=== PATIENT | male | born 1945 | race Caucasian/White ===

== ENCOUNTER 2019-08-01 12:52 | Emergency (ER) | payer MEDICARE, OTHER, SELFPAY ==
[2019-08-01 12:58] VITALS: BP 154/74; PULSE 60; RESP 19; TEMP 36.5; O2SAT 99
[2019-08-01 13:01] VITALS: BP 175/81; PULSE 58; RESP 18; O2SAT 99
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
[2019-08-01 14:00] VITALS: BP 160/76; PULSE 59; RESP 18; O2SAT 100
[2019-08-01 15:40] VITALS: PULSE 70
--- NOTE | 2019-08-01 15:41 | PM.CN ---
History of Present Illness Consult details Date Patient Seen: 08/01/19 Time Patient Seen: 15:41 Chief complaint: FELL AND HURT RT KNEE Reason for consult: Right quadriceps rupture Requesting provider: Erick Maciel Narrative: 74-year-old male with right quadriceps rupture. He was working outside and was turning and tripped over a pipe. He felt a pop as he went down. He was unable to extend his knee after that. He came into the emergency room to have this evaluated. He did not hit his head or lose consciousness. He did not have any prodromal shortness of breath or dizziness, he just tripped over the pipe. Does not hurt anywhere else. Meds Home Medications and Allergies Home Medications Medication Instructions Recorded Confirmed Type aspirin 81 mg PO HS #0 08/09/17 History atorvastatin [Lipitor] 20 mg PO HS #0 08/09/17 History Allergies Allergy/AdvReac Type Severity Reaction Status Date / Time No Known Drug Allergies Allergy Verified 08/01/19 12:59 Review of Systems Constitutional Constitutional: Denies chills and Denies fever(s) ENT Ears, Nose, Mouth, and Throat: No dizziness Cardiovascular Cardiovascular: Denies chest pain Respiratory Respiratory: Denies chest congestion, Denies cough and Denies wheezing Neurologic Neurologic: Denies dizziness Hematologic/Lymphatic Hematologic/Lymphatic: Denies easy bleeding Allergic/Immunologic Allergic/Immunologic: Denies wheezing Exam Vital Signs (past 8 hours): - 08/01/19 12:58 08/01/19 13:01 08/01/19 14:00 Temperature 97.7 F Pulse Rate 60 58 L 59 L Respiratory Rate 19 18 18 Blood Pressure [Right Arm] 154/74 H 175/81 H 160/76 H Pulse Oximetry 99 99 100 Oxygen Delivery Method Room Air Const Orientation: alert and oriented x3 Resp Auscultation: clear to auscultation bilaterally Cardio Rate: regular rate Rhythm: regular rhythm Extrem Other: Right leg unable to actively extend knee. Unable to maintain extended position of knee against gravity. Palpable divot just above the patella with quadriceps tightening. Intact integument. 1+ dorsalis pedis pulse. Intact sensation in the leg. Assessment & Plan Assessment & Plan narrative: Acute right quadriceps tendon rupture. I recommend primary surgical repair and discussed the technique with sutures and drill holes through the patella. Risks and benefits of surgery were discussed including but not limited to medical risk with heart attack, stroke, DVT, PE, , infection, bleeding, scarring, rerupture, stiffness, altered gait, need for further surgery. He understands. We will plan on surgery tomorrow morning after he is NPO tonight. Arrangements were made for him to present to the front office manager at 9:00 a.m. and planned surgery time of 10:00 a.m..
--- NOTE | 2019-08-01 15:42 | PC.NURSE ---
can not straiten leg
[2019-08-01 15:52] VITALS: BP 141/72; PULSE 89; RESP 17; O2SAT 99
[2019-08-01] MEDS: BACITRACIN OINT 0.9 GM PCKT 1 APPLIC TOP (15:53)
[2019-08-02 01:11] LABS: COVID19 Sendout Not Detected (Not Detect)
== END 2019-08-01 16:24 | disposition home or self-care (01) ==
PROVIDERS: Emergency Provider Student in an Organized Health Care Education/Training Program
DX: S76.111A Strain of right quadriceps muscle, fascia and tendon, initial encounter (principal); M25.561 Pain in right knee; W19.XXXA Unspecified fall, initial encounter
CPT/HCPCS: 73562; 87635; 99283

== ENCOUNTER 2019-08-02 08:49 | Day surgery (SDC) | payer MEDICARE, OTHER, SELFPAY ==
[2019-08-02] VITALS (9 sets, daily range): BP systolic 109–141; BP diastolic 67–85; PULSE 60–75; RESP 11–16; TEMP 36.1–36.5; O2SAT 95–99; BMI 29.9
--- NOTE | 2019-08-02 09:13 | PM.PREOP ---
Pre-operative Note Interval Note History & Physical reviewed/Exam performed by Physician: Yes Changes to H&P: No
[2019-08-02] MEDS: LACTATED RINGERS 1,000 ML 42 ML IV (09:30)
--- NOTE | 2019-08-02 09:58 | SUR.OPER ---
Addendum entered by Ev Thomas R.N. 08/02/19 11:10: Bump under operative hip. Original Note: Supine on padded OR bed, head on pillow, arms secured on padded arm boards at <90 degrees abduction, legs uncrossed, safety belt at thigh, tape over blanket over lower legs.
[2019-08-02] MEDS: CEFAZOLIN 2 GM/100 ML FROZ.PIGGY IV (10:15)
--- NOTE | 2019-08-02 10:17 | SUR.PREOP ---
Block start time [48] . Monitoring initiated and maintained throughout procedure. Oxygen and medications given per anesthesiologist instructions. Patient remained stable throughout procedure, no adverse reactions noted. Block end time [954]. Pt alert and talking to RN and anesthesiologist during procedure. pt taken into the OR after completion of the block in stable condition, vss.
[2019-08-02] MEDS: SODIUM CHLORIDE 0.9% 1,000 ML, GENTAMICIN 80 MG IRR (11:07)
--- NOTE | 2019-08-02 11:45 | PM.OP.1 ---
Operative Date/Time/Diagnoses Date of procedure: 08/02/19 Time of procedure: 11:45 Pre-op diagnosis: Right quadriceps rupture Post-op diagnosis: same Procedure & Clinicians Procedure: Primary repair of right quadriceps tendon rupture Same procedure as scheduled: Yes Indications: 74-year-old male with a right quadriceps tendon rupture. It was felt that he would benefit from operative repair. Risks and benefits of surgery were discussed and appropriate consents were obtained. Surgeon: Alejandro Moran Click Yes if Unassisted: Yes Anesthesia Type: General Operative Notes Findings: None Closure Type: primary Specimen(s): none sent Estimated Blood Loss (mL): 20 Procedure in detail: Patient brought to the operating room and a femoral block as well as spinal were initiated with anesthesia. Time-out was performed. Preoperative antibiotics were given. Attention was turned towards the well-marked right leg. A well-padded tourniquet was placed high on the thigh. The leg was prepped and draped in the standard sterile fashion. We did not inflate the tourniquet. A 15 cm longitudinal incision was made in the midline. We sharply dissected down to the retinacular layer and split this and elevated up. The quadriceps had completely torn off as well as medial and lateral retinacular ruptures. The hematoma was evacuated and the wound was then copiously irrigated. We elevated up the knee, there was significant chondromalacia of the cartilage underneath the patella. The edges of the tendon were cleaned up. Deep mattress sutures were placed in the remnant of the tendon at the patellar insertion. A rongeur was used to debride the proximal pole of the patella. Krackow stitches were placed into the quadriceps tendon. Three drill holes were placed longitudinally through the patella with manual guidance. We then used suture passers and pulled down the stitches. The knee was flexed to 90? and the stitches were held with a hemostat and then tied tightly. There did not appear to be any gap. The mattress sutures were then tied down through the quadriceps tendon with free needles. We then repaired the retinaculum. The wound was again irrigated. The superficial and skin were closed. Sterile dressing was placed. He was then placed in a knee immobilizer. Complications: none Post-operative Condition: stable Disposition: PACU Plan for aftercare: Outpatient. Weight bear as tolerated with a knee immobilizer. May start gentle flexion to 30? three weeks after surgery and then advance to full at the 6 week point.
--- NOTE | 2019-08-02 12:37 | PM.PROC.1 ---
Procedures Date/Time Date of procedure: 08/02/19 Time of procedure: 10:00 Nerve Block Time out performed: Yes Local anesthetic used: lidocaine 2% (5mL, 15mL ropivacaine 0.5%) Location of anesthetic used: femoral nerve Amount of anesthesia used (mL): 20 Nerve blocks: femoral Procedure successful: Yes Patient tolerated procedure: well Complications: none Additional comments: Femoral Nerve block for post operative pain management. R/B discussed. Site marked. Consent verified/signed. Standard ASA monitors. NC O2. Chloroprep. Sterile technique. Femoral A/V/N identified at inguinal crease with US. Lidocaine skin wheal. 50mm x 21g Pajunk needle advanced with in-plane US guidance. Negative aspiration. LA injected lateral to femoral artery. Negative aspiration throughout. No pain, no paresthesia with injection. VSS. Tolerated well. To OR.
== END 2019-08-02 13:00 | disposition home or self-care (01) ==
PROVIDERS: PCP Internal Medicine; Referring Provider Orthopaedic Surgery; Visit Provider Orthopaedic Surgery
PROC: (CPT 27385; principal; 2019-08-02 10:00)
DX: S76.111A Strain of right quadriceps muscle, fascia and tendon, initial encounter (principal); W18.39XA Other fall on same level, initial encounter
CPT/HCPCS: 27385; 64450; J0690; J2704

== ENCOUNTER 2019-10-29 10:30 | Outpatient (RCR) | payer MEDICARE, OTHER, SELFPAY ==
--- NOTE | 2019-09-12 18:50 | PT.OIE ---
Current Diagnoses Difficulty in walking, not elsewhere classified (09/12/19) Weakness (09/12/19) Strain of right quadriceps muscle, fascia and tendon, subsequent encounter (09/12/19) Past Medical History (Last Updated 08/02/19 @ 07:49 by Lori Bynum RN) Actinic keratosis (Acute) Ankle fracture (Acute) HLD (hyperlipidemia) (Acute) HTN (hypertension) (Acute) Injury of right lower extremity (Acute 08/01/19) Rene syndrome (Acute) Past Surgical History (Last Updated 08/02/19 @ 07:49 by Lori Bynum RN) History of surgery (Acute) Hx of tonsillectomy (Acute) Visit Care Team Role Provider Type Nathanael Laguerre MD Primary Care Provider Physician Specialty: Internal Medicine Address: [address] [place] [address], [address] Email: [email or web address] Alejandro Moran MD Attending Provider Physician Referring Provider Specialty: Orthopedic Surgery Address: [address] [place] [address], [address] Email: [email or web address] Physical Therapy Initial Evaluation PT-OP-A Visit Information Start: 09/12/19 10:24 Freq: Status: Active Protocol: Document 09/12/19 16:52 [facility] (Rec: 09/12/19 18:50 [facility] [id number]) Out-Patient Physical Therapy Visit Information Visit Information Visit Type Initial Evaluation Visit Start Time 16:50 Visit Stop Time 17:35 Total Visit Minutes 45 Visit Number 1 Number of RN CARDIAC REHAB Visits 0 Precautions Precautions none after 09/12 per referal PT-OP-B Current Condition Start: 09/12/19 10:24 Freq: Status: Active Protocol: Document 09/12/19 16:52 [facility] (Rec: 09/12/19 18:50 [facility] [id number]) Current Condition History of Current Condition Onset Date 08/02/19 Current Complaints R quad History of Current Condition Pt was fueling up his car on and tripped when stepping over the gas hose and tripped. He tore his quad and had surgery the next day. He was in a knee immobilizer until yesterday. Pt saw last week who prescribed PT and told him to take off immobilizer yesterday. He was able to bend to about 90 at that appointment. Pt said he walked his dog today about 4 blocks without it prior to that he was walking a mile with his dog with immobilizer. 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 (Rec: 09/12/19 18:50 [facility] [id number]) Patient Questionnaires Lower Extremity Functional Scale LEFS Score 56 LEFS Impairment 20 to 39% Impaired (Score 48- 62) OP-PT Pain Assessment Location R knee Pain Location Details ant knee Intensity 3 Scale Used Numeric (1 - 10) Description With Movement Frequency Intermittent Pain Duration stops when stopping that motion Pain Aggravating Factors Bending Other Pain Alleviating Factors stop the painful movement PT-OP-D Balance Start: 09/12/19 10:24 Freq: Status: Active Protocol: Document 09/12/19 16:52 [facility] (Rec: 09/12/19 18:50 [facility] [id number]) Balance Tests Single Limb Standing Single Limb- Right 30 sec with inc pertubations, lat lean R Single Limb- Left 30 sec PT-OP-F Manual Assessment Start: 09/12/19 10:24 Freq: Status: Active Protocol: Document 09/12/19 16:52 [facility] (Rec: 09/12/19 18:50 [facility] [id number]) Manual Assessments Soft Tissue Assessment Soft Tissue Mobility Assessment scar tissue tightness present on ant knee scar Joint Mobility Assessment Joint Mobility Assessment dec patellar mobility R PT-OP-G Mobility & Gait Start: 09/12/19 10:24 Freq: Status: Active Protocol: Document 09/12/19 16:52 [facility] (Rec: 09/12/19 18:50 [facility] [id number]) OP Gait Assessment Comments Gait Comments Pt amb with dec knee flex of R leg and dec push off with lat lean to L with LLE WB in order to clear RLE PT-OP-J Posture/Palpation/Skin Start: 09/12/19 10:24 Freq: Status: Active Protocol: Document 09/12/19 16:52 [facility] (Rec: 09/12/19 18:50 [facility] [id number]) Posture Evaluation Annie Postural Classification System Lumbar Protective Mechanism Left AP 0 Lumbar Protective Mechanism Right AP 0 Lumbar Protective Mechanism Left PA 2 Lumbar Protective Mechanism Right PA 2 PT-OP-K Range of Motion Start: 09/12/19 10:24 Freq: Status: Active Protocol: Document 09/12/19 16:52 [facility] (Rec: 09/12/19 18:50 [facility] [id number]) Knee Goniometric Range of Motion Knee Left Flexion Active (degrees) 132 Extension Active (degrees) 0 Right Flexion Active (degrees) 83 Extension Active (degrees) 9 PT-OP-M Strength Start: 09/12/19 10:24 Freq: Status: Active Protocol: Document 09/12/19 16:52 [facility] (Rec: 09/12/19 18:50 [facility] [id number]) Hip Strength Hip Manual Muscle Testing Right Flexion (L2) 3+ Fair+ Extension (S1) 3+ Fair+ Abduction 3+ Fair+ Adduction 3+ Fair+ External Rotation 3+ Fair+ Internal Rotation 4- Good- Left Flexion (L2) 4+ Good+ Extension (S1) 4- Good- Abduction 4+ Good+ Adduction 4 Good External Rotation 4+ Good+ Internal Rotation 4+ Good+ Knee Strength Knee Manual Muscle Testing Right Flexion (S2) 3+ Fair+ Extension (L3) 3+ Fair+ Left Flexion (S2) 4+ Good+ Extension (L3) 5 Normal Ankle/Foot Strength Ankle and Foot Manual Muscle Testing Right Dorsiflexion (L4) 5 Normal Plantarflexion (S1) 5 Normal Left Dorsiflexion (L4) 5 Normal Plantarflexion (S1) 5 Normal PT-OP-Q Treatments Start: 09/12/19 10:24 Freq: Status: Active Protocol: Document 09/12/19 16:52 [facility] (Rec: 09/12/19 18:50 [facility] [id number]) Therapeutic Exercises Supine Exercises quad stretch Side right Reps/Minutes 30 sec heel slides Side right Reps/Minutes 5secx5 Sitting Exercises knee flex Sitting Exercise Name w/scoot fwd Side right Reps/Minutes 10 sec x3 Standing Exercises squat Standing Exercise Name sit<>stand Side bilateral Reps/Minutes 4 Comments min use of hands Manual Therapy Treatment Soft Tissue Mobilization scar Mobilization Type Rolling Intensity/Depth Moderate Body Position Supine Joint Mobilizations PF Direction sup, med, inf PT-OP-T Assessment and Plan Start: 09/12/19 10:24 Freq: Status: Active Protocol: Document 09/12/19 16:52 [facility] (Rec: 09/12/19 18:50 [facility] [id number]) Physical Therapy Assessment Rehab Potential Rehabilitation Potential Good Evaluation Complexity Number of Personal Factors/Comorbidities 3 or More Number of Body Systems Impaired 4 or More Clinical Presentation at Evaluation Stable Impairments Impairments Activity Tolerance,Balance, Functional Activities, Functional Mobility,Gait,Pain, Posture,ROM,Soft Tissue Mobility,Strength Goals walking Short Term Goal (STG) Pt will be able to walk 2 miles on even terrain without inc pain greater than 2/10. STG Duration 10/13/19 Detention Goal (LTG) Pt will be able to hike 2 miles on uneven and hilly terrain without inc pain. LTG Duration 11/12/19 ROM Short Term Goal (STG) Pt will have full ext to 0 deg in order to improve gait mechanics. STG Duration 10/01/19 Detention Goal (LTG) Pt will have flex to 130 deg and be able to get in/out of a kayak. LTG Duration 11/12/19 strength Short Term Goal (STG) Pt will be indep with HEP STG Duration 10/13/19 Co Director Goal (LTG) Pt will have 5/5 B LE strength and LPM to show improved stability and ability to return to typical activities. LTG Duration 11/12/19 stairs Impairment step to down and requires rails up and down stairs Short Term Goal (STG) Pt will be ascend stairs reciprocally without rails STG Duration 10/04/19 Detention Goal (LTG) pt will be able to descend stairs reciprocally without raisl LTG Duration 11/12/19 Assessment Summary Assessment Pt presents 6 weeks s/p R quad tear and repair after tripping on gas hose at the gas station. He is recovering well and was cleared to remove his immobilizer that had been locked to 30 deg flex yesterday. Per referral, starting tomorrow 09/12, pt has no restrictions. He is doing well with activties, but has imparied gait and limited mobility due to dec ROM and strength. He would benefit from skilled PT to address these concerns. Physical Therapy Plan Frequency and Duration Frequency of Treatment 1-2x/week Duration of Treatment 2 months Plan of Care Start Date 09/12/19 Plan of Care End Date 11/12/19 Therapeutic Interventions Therapeutic Interventions Aquatic Therapy,Balance Training,Gait Training,Home Exercise Program,Joint Mobilizations,Manual Therapy, Neuromuscular Re-education, Patient/Caregiver Education, Self-Care/Home Management,Soft Tissue Mobilization,Taping, Therapeutic Activities, Therapeutic Exercises Modalities Cold Pack/Ice Massage,Electric Stimulation,Hot Packs, Ultrasound Next Visit Focus/Plan Next Note Type Treatment Note Next Visit Plan work on patellar mobility, scar tissue mobility, tibfib & tib fem mobility, step ups, balance board
--- NOTE | 2019-09-12 18:50 | PT.OPPOC ---
Physical, Occupational & Speech Therapy At [facility] Current Diagnoses Difficulty in walking, not elsewhere classified (09/12/19) Weakness (09/12/19) Strain of right quadriceps muscle, fascia and tendon, subsequent encounter (09/12/19) Visit Care Team Role Provider Type Nathanael Laguerre MD Primary Care Provider Physician Specialty: Internal Medicine Address: [address] [place] [address], [address] Email: [email or web address] Alejandro Moran MD Attending Provider Physician Referring Provider Specialty: Orthopedic Surgery Address: [address] [place] [address], [address] Email: [email or web address] Plan Of Care PT-OP-T Assessment and Plan Start: 09/12/19 10:24 Freq: Status: Active Protocol: Document 09/12/19 16:52 [facility] (Rec: 09/12/19 18:50 [facility] [id number]) Physical Therapy Assessment Rehab Potential Rehabilitation Potential Good Evaluation Complexity Number of Personal Factors/Comorbidities 3 or More Number of Body Systems Impaired 4 or More Clinical Presentation at Evaluation Stable Impairments Impairments Activity Tolerance,Balance, Functional Activities, Functional Mobility,Gait,Pain, Posture,ROM,Soft Tissue Mobility,Strength Goals walking Short Term Goal (STG) Pt will be able to walk 2 miles on even terrain without inc pain greater than 2/10. STG Duration 10/13/19 Ip Litigation Paralegal Goal (LTG) Pt will be able to hike 2 miles on uneven and hilly terrain without inc pain. LTG Duration 11/12/19 ROM Short Term Goal (STG) Pt will have full ext to 0 deg in order to improve gait mechanics. STG Duration 10/01/19 Ip Litigation Paralegal Goal (LTG) Pt will have flex to 130 deg and be able to get in/out of a kayak. LTG Duration 11/12/19 strength Short Term Goal (STG) Pt will be indep with HEP STG Duration 10/13/19 Ip Litigation Paralegal Goal (LTG) Pt will have 5/5 B LE strength and LPM to show improved stability and ability to return to typical activities. LTG Duration 11/12/19 stairs Impairment step to down and requires rails up and down stairs Short Term Goal (STG) Pt will be ascend stairs reciprocally without rails STG Duration 10/04/19 Senior Care Goal (LTG) pt will be able to descend stairs reciprocally without raisl LTG Duration 11/12/19 Assessment Summary Assessment Pt presents 6 weeks s/p R quad tear and repair after tripping on gas hose at the gas station. He is recovering well and was cleared to remove his immobilizer that had been locked to 30 deg flex yesterday. Per referral, starting tomorrow 09/12, pt has no restrictions. He is doing well with activties, but has imparied gait and limited mobility due to dec ROM and strength. He would benefit from skilled PT to address these concerns. Physical Therapy Plan Frequency and Duration Frequency of Treatment 1-2x/week Duration of Treatment 2 months Plan of Care Start Date 09/12/19 Plan of Care End Date 11/12/19 Therapeutic Interventions Therapeutic Interventions Aquatic Therapy,Balance Training,Gait Training,Home Exercise Program,Joint Mobilizations,Manual Therapy, Neuromuscular Re-education, Patient/Caregiver Education, Self-Care/Home Management,Soft Tissue Mobilization,Taping, Therapeutic Activities, Therapeutic Exercises Modalities Cold Pack/Ice Massage,Electric Stimulation,Hot Packs, Ultrasound Next Visit Focus/Plan Next Note Type Treatment Note Next Visit Plan work on patellar mobility, scar tissue mobility, tibfib & tib fem mobility, step ups, balance board Plan of Care Dates Plan of Care Start Date 09/12/19 Plan of Care End Date 11/12/19 Electronically Signed by: Vicki Black, PT 09/12/19 [id number] Please Sign and Return: I have reviewed this Plan of Care and certify that the skilled therapy services above are required to meet the patient?s needs. Physician Signature Date Printed Name and Credentials Clinical Instructor Signature Printed Name and Credentials
--- NOTE | 2019-09-17 11:27 | PT.OTN ---
Current Diagnoses Difficulty in walking, not elsewhere classified (09/17/19) Weakness (09/17/19) Strain of right quadriceps muscle, fascia and tendon, subsequent encounter (09/17/19) Physical Therapy Treatment Note PT-OP-A Visit Information Start: 09/12/19 10:24 Freq: Status: Active Protocol: Document 09/17/19 09:45 [facility] (Rec: 09/17/19 11:27 [facility] [id number]) Out-Patient Physical Therapy Visit Information Visit Information Visit Type Treatment Note Visit Note 05/28 Visit Start Time 09:45 Visit Stop Time 10:28 Total Visit Minutes 43 Visit Number 2 Number of NARCOTICS AND VICE DETECTIVE Visits 0 PT-OP-B Current Condition Start: 09/12/19 10:24 Freq: Status: Active Protocol: Document 09/12/19 16:52 [facility] (Rec: 09/12/19 18:50 [facility] [id number]) Current Condition History of Current Condition Onset Date 08/02/19 Current Complaints R quad History of Current Condition Pt was fueling up his car on and tripped when stepping over the gas hose and tripped. He tore his quad and had surgery the next day. He was in a knee immobilizer until yesterday. Pt saw MD last week who prescribed PT and told him to take off immobilizer yesterday. He was able to bend to about 90 at that appointment. Pt said he walked his dog today about 4 blocks without it prior to that he was walking a mile with his dog with immobilizer. 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 swimmer, likes to [employer], rides a motorcycle, and goes for walks daily with dog (1.5 miles) Treatment Goals Patient/Caregiver Goals Improve his ROM to close to other leg, be able to hike steep inclines, be able to go down steps, be able to walk on a boat and pull up sails Personal Factors Other Personal Factors That May Effect hx of LBP, R ankle fracture Therapy/Recovery PT-OP-C Subjective Start: 09/12/19 10:24 Freq: Status: Active Protocol: Document 09/17/19 09:45 [facility] (Rec: 09/17/19 11:27 [facility] [id number]) OP-PT Subjective Patient Comments Patient Comments compliance with HEP PT-OP-D Balance Start: 09/12/19 10:24 Freq: Status: Active Protocol: Document 09/12/19 16:52 [facility] (Rec: 09/12/19 18:50 [facility] [id number]) Balance Tests Single Limb Standing Single Limb- Right 30 sec with inc pertubations, lat lean R Single Limb- Left 30 sec PT-OP-F Manual Assessment Start: 09/12/19 10:24 Freq: Status: Active Protocol: Document 09/12/19 16:52 [facility] (Rec: 09/12/19 18:50 [facility] [id number]) Manual Assessments Soft Tissue Assessment Soft Tissue Mobility Assessment scar tissue tightness present on ant knee scar Joint Mobility Assessment Joint Mobility Assessment dec patellar mobility R PT-OP-G Mobility & Gait Start: 09/12/19 10:24 Freq: Status: Active Protocol: Document 09/12/19 16:52 [facility] (Rec: 09/12/19 18:50 [facility] [id number]) OP Gait Assessment Comments Gait Comments Pt amb with dec knee flex of R leg and dec push off with lat lean to L with LLE WB in order to clear RLE PT-OP-J Posture/Palpation/Skin Start: 09/12/19 10:24 Freq: Status: Active Protocol: Document 09/12/19 16:52 [facility] (Rec: 09/12/19 18:50 [facility] [id number]) Posture Evaluation [facility] Postural Classification System Lumbar Protective Mechanism Left AP 0 Lumbar Protective Mechanism Right AP 0 Lumbar Protective Mechanism Left PA 2 Lumbar Protective Mechanism Right PA 2 PT-OP-K Range of Motion Start: 09/12/19 10:24 Freq: Status: Active Protocol: Document 09/12/19 16:52 [facility] (Rec: 09/12/19 18:50 [facility] [id number]) Knee Goniometric Range of Motion Knee Left Flexion Active (degrees) 132 Extension Active (degrees) 0 Right Flexion Active (degrees) 83 Extension Active (degrees) 9 PT-OP-M Strength Start: 09/12/19 10:24 Freq: Status: Active Protocol: Document 09/12/19 16:52 [facility] (Rec: 09/12/19 18:50 [facility] [id number]) Hip Strength Hip Manual Muscle Testing Right Flexion (L2) 3+ Fair+ Extension (S1) 3+ Fair+ Abduction 3+ Fair+ Adduction 3+ Fair+ External Rotation 3+ Fair+ Internal Rotation 4- Good- Left Flexion (L2) 4+ Good+ Extension (S1) 4- Good- Abduction 4+ Good+ Adduction 4 Good External Rotation 4+ Good+ Internal Rotation 4+ Good+ Knee Strength Knee Manual Muscle Testing Right Flexion (S2) 3+ Fair+ Extension (L3) 3+ Fair+ Left Flexion (S2) 4+ Good+ Extension (L3) 5 Normal Ankle/Foot Strength Ankle and Foot Manual Muscle Testing Right Dorsiflexion (L4) 5 Normal Plantarflexion (S1) 5 Normal Left Dorsiflexion (L4) 5 Normal Plantarflexion (S1) 5 Normal PT-OP-Q Treatments Start: 09/12/19 10:24 Freq: Status: Active Protocol: Document 09/17/19 09:45 [facility] (Rec: 09/17/19 11:27 [facility] [id number]) Cardio Equipment Recumbent Stepper (Sci-Fit) Duration (Minutes) 6 Resistance 1 Seat Position 11-10 Other focus on ROM Gym Equipment Shuttle Balance red clips Details fwd & side: WBOS & NBOS & tips Therapeutic Exercises Supine Exercises quad set Side right Reps/Minutes 5 sec x5 HS stretch Side right Reps/Minutes 30 sec x2 Prone Exercises TKE Side bilateral Reps/Minutes 5secx5 quad stretch Prone Exercise Name w/ belt Side right Reps/Minutes 30 secx2 Manual Therapy Treatment Soft Tissue Mobilization post leg Body Location HS & calf Mobilization Type Rolling Intensity/Depth Moderate Body Position Supine scar Mobilization Type Rolling Intensity/Depth Moderate Body Position Supine Comments rolling & plunger Joint Mobilizations PF Direction sup, med, inf PT-OP-T Assessment and Plan Start: 09/12/19 10:24 Freq: Status: Active Protocol: Document 09/17/19 09:45 [facility] (Rec: 09/17/19 11:27 [facility] [id number]) Physical Therapy Assessment Goals walking Short Term Goal (STG) Pt will be able to walk 2 miles on even terrain without inc pain greater than 2/10. STG Duration 10/13/19 [employer] Performer Goal (LTG) Pt will be able to hike 2 miles on uneven and hilly terrain without inc pain. LTG Duration 11/12/19 ROM Short Term Goal (STG) Pt will have full ext to 0 deg in order to improve gait mechanics. STG Duration 10/01/19 Halfway Goal (LTG) Pt will have flex to 130 deg and be able to get in/out of a kayak. LTG Duration 11/12/19 strength Short Term Goal (STG) Pt will be indep with HEP STG Duration 10/13/19 Marionette Performer Goal (LTG) Pt will have 5/5 B LE strength and LPM to show improved stability and ability to return to typical activities. LTG Duration 11/12/19 stairs Impairment step to down and requires rails up and down stairs Short Term Goal (STG) Pt will be ascend stairs reciprocally without rails STG Duration 10/04/19 Halfway Goal (LTG) pt will be able to descend stairs reciprocally without raisl LTG Duration 11/12/19 Assessment Summary Assessment Pt did well with all exercises without c/o inc pain. ROM to 104 deg of flex today. He did well with balance exercises with challenge on balance board. Impoving superior mobility of scar. Physical Therapy Plan Frequency and Duration Frequency of Treatment 1-2x/week Duration of Treatment 2 months Plan of Care Start Date 09/12/19 Plan of Care End Date 11/12/19 Next Visit Focus/Plan Next Note Type Treatment Note Next Visit Plan work on patellar mobility, scar tissue mobility, tibfib & tib fem mobility, quad strength, balance board
--- NOTE | 2019-09-19 12:58 | PT.OTN ---
Current Diagnoses Difficulty in walking, not elsewhere classified (09/19/19) Weakness (09/19/19) Strain of right quadriceps muscle, fascia and tendon, subsequent encounter (09/19/19) Physical Therapy Treatment Note PT-OP-A Visit Information Start: 09/12/19 10:24 Freq: Status: Active Protocol: Document 09/19/19 10:39 [facility] (Rec: 09/19/19 11:20 [facility] [id number]) Out-Patient Physical Therapy Visit Information Visit Information Visit Type Treatment Note Visit Note 05/28 Visit Start Time 10:34 Visit Stop Time 11:17 Total Visit Minutes 43 Visit Number 3 Number of CULINARY MANAGER Visits 0 PT-OP-B Current Condition Start: 09/12/19 10:24 Freq: Status: Active Protocol: Document 09/12/19 16:52 [facility] (Rec: 09/12/19 18:50 [facility] [id number]) Current Condition History of Current Condition Onset Date 08/02/19 Current Complaints R quad History of Current Condition Pt was fueling up his car on and tripped when stepping over the gas hose and tripped. He tore his quad and had surgery the next day. He was in a knee immobilizer until yesterday. Pt saw MD last week who prescribed PT and told him to take off immobilizer yesterday. He was able to bend to about 90 at that appointment. Pt said he walked his dog today about 4 blocks without it prior to that he was walking a mile with his dog with immobilizer. 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 swimmer, likes to [employer], rides a motorcycle, and goes for walks daily with dog (1.5 miles) Treatment Goals Patient/Caregiver Goals Improve his ROM to close to other leg, be able to hike steep inclines, be able to go down steps, be able to walk on a boat and pull up sails Personal Factors Other Personal Factors That May Effect hx of LBP, R ankle fracture Therapy/Recovery PT-OP-C Subjective Start: 09/12/19 10:24 Freq: Status: Active Protocol: Document 09/19/19 10:39 [facility] (Rec: 09/19/19 11:20 [facility] [id number]) OP-PT Subjective Patient Comments Patient Comments Pt feels like knee loosened up yesterday. PT-OP-D Balance Start: 09/12/19 10:24 Freq: Status: Active Protocol: Document 09/12/19 16:52 [facility] (Rec: 09/12/19 18:50 [facility] [id number]) Balance Tests Single Limb Standing Single Limb- Right 30 sec with inc pertubations, lat lean R Single Limb- Left 30 sec PT-OP-F Manual Assessment Start: 09/12/19 10:24 Freq: Status: Active Protocol: Document 09/12/19 16:52 [facility] (Rec: 09/12/19 18:50 [facility] [id number]) Manual Assessments Soft Tissue Assessment Soft Tissue Mobility Assessment scar tissue tightness present on ant knee scar Joint Mobility Assessment Joint Mobility Assessment dec patellar mobility R PT-OP-G Mobility & Gait Start: 09/12/19 10:24 Freq: Status: Active Protocol: Document 09/12/19 16:52 [facility] (Rec: 09/12/19 18:50 [facility] [id number]) OP Gait Assessment Comments Gait Comments Pt amb with dec knee flex of R leg and dec push off with lat lean to L with LLE WB in order to clear RLE PT-OP-J Posture/Palpation/Skin Start: 09/12/19 10:24 Freq: Status: Active Protocol: Document 09/12/19 16:52 [facility] (Rec: 09/12/19 18:50 [facility] [id number]) Posture Evaluation [facility] Postural Classification System Lumbar Protective Mechanism Left AP 0 Lumbar Protective Mechanism Right AP 0 Lumbar Protective Mechanism Left PA 2 Lumbar Protective Mechanism Right PA 2 PT-OP-K Range of Motion Start: 09/12/19 10:24 Freq: Status: Active Protocol: Document 09/12/19 16:52 [facility] (Rec: 09/12/19 18:50 [facility] [id number]) Knee Goniometric Range of Motion Knee Left Flexion Active (degrees) 132 Extension Active (degrees) 0 Right Flexion Active (degrees) 83 Extension Active (degrees) 9 PT-OP-M Strength Start: 09/12/19 10:24 Freq: Status: Active Protocol: Document 09/12/19 16:52 [facility] (Rec: 09/12/19 18:50 [facility] [id number]) Hip Strength Hip Manual Muscle Testing Right Flexion (L2) 3+ Fair+ Extension (S1) 3+ Fair+ Abduction 3+ Fair+ Adduction 3+ Fair+ External Rotation 3+ Fair+ Internal Rotation 4- Good- Left Flexion (L2) 4+ Good+ Extension (S1) 4- Good- Abduction 4+ Good+ Adduction 4 Good External Rotation 4+ Good+ Internal Rotation 4+ Good+ Knee Strength Knee Manual Muscle Testing Right Flexion (S2) 3+ Fair+ Extension (L3) 3+ Fair+ Left Flexion (S2) 4+ Good+ Extension (L3) 5 Normal Ankle/Foot Strength Ankle and Foot Manual Muscle Testing Right Dorsiflexion (L4) 5 Normal Plantarflexion (S1) 5 Normal Left Dorsiflexion (L4) 5 Normal Plantarflexion (S1) 5 Normal PT-OP-Q Treatments Start: 09/12/19 10:24 Freq: Status: Active Protocol: Document 09/19/19 10:39 [facility] (Rec: 09/19/19 11:20 [facility] [id number]) Cardio Equipment Recumbent Stepper (Sci-Fit) Duration (Minutes) 6 Resistance 4 Seat Position 10-8 Other focus on ROM Gym Equipment Shuttle Balance red clips Details fwd & side: WBOS & NBOS & tips in WBOS, staggered stance B Therapeutic Exercises Standing Exercises step up Standing Exercise Name 6 in step reciprocally up and4 in down Side bilateral Reps/Minutes 2x stretch Standing Exercise Name [place] Manual Therapy Treatment Soft Tissue Mobilization quad Body Location VL Mobilization Type Rolling post leg Body Location HS & calf Mobilization Type Rolling Intensity/Depth Moderate Body Position Supine scar Mobilization Type Rolling Intensity/Depth Moderate Body Position Supine Comments rolling & plunger Joint Mobilizations PF Direction sup, med, inf Manual Techniques C/R Type HS stretch for ext PT-OP-T Assessment and Plan Start: 09/12/19 10:24 Freq: Status: Active Protocol: Document 09/19/19 10:39 [facility] (Rec: 09/19/19 11:20 [facility] [id number]) Physical Therapy Assessment Goals walking Short Term Goal (STG) Pt will be able to walk 2 miles on even terrain without inc pain greater than 2/10. STG Duration 10/13/19 Jail Goal (LTG) Pt will be able to hike 2 miles on uneven and hilly terrain without inc pain. LTG Duration 11/12/19 ROM Short Term Goal (STG) Pt will have full ext to 0 deg in order to improve gait mechanics. STG Duration 10/01/19 Kinesiotherapist Goal (LTG) Pt will have flex to 130 deg and be able to get in/out of a kayak. LTG Duration 11/12/19 strength Short Term Goal (STG) Pt will be indep with HEP STG Duration 10/13/19 Jail Goal (LTG) Pt will have 5/5 B LE strength and LPM to show improved stability and ability to return to typical activities. LTG Duration 11/12/19 stairs Impairment step to down and requires rails up and down stairs Short Term Goal (STG) Pt will be ascend stairs reciprocally without rails STG Duration 10/04/19 Jail Goal (LTG) pt will be able to descend stairs reciprocally without raisl LTG Duration 11/12/19 Assessment Summary Assessment Pt had 6-107 deg ROM then improved to lacking only 2 deg of ext after manaul tratment today. He is doing well with up stairs but difficulty with down stairs. Physical Therapy Plan Frequency and Duration Frequency of Treatment 1-2x/week Duration of Treatment 2 months Plan of Care Start Date 09/12/19 Plan of Care End Date 11/12/19 Next Visit Focus/Plan Next Note Type Treatment Note Next Visit Plan work on patellar mobility, scar tissue mobility, tibfib & tib fem mobility, quad strength, balance board
--- NOTE | 2019-09-24 12:20 | PT.OTN ---
Current Diagnoses Difficulty in walking, not elsewhere classified (09/24/19) Weakness (09/24/19) Strain of right quadriceps muscle, fascia and tendon, subsequent encounter (09/24/19) Physical Therapy Treatment Note PT-OP-A Visit Information Start: 09/12/19 10:24 Freq: Status: Active Protocol: Document 09/24/19 11:23 [facility] (Rec: 09/24/19 12:20 [facility] [id number]) Out-Patient Physical Therapy Visit Information Visit Information Visit Type Treatment Note Visit Start Time 11:18 Visit Stop Time 12:00 Total Visit Minutes 42 Visit Number 4 Number of SOCIAL GROUP WORKER Visits 0 PT-OP-B Current Condition Start: 09/12/19 10:24 Freq: Status: Active Protocol: Document 09/12/19 16:52 [facility] (Rec: 09/12/19 18:50 [facility] [id number]) Current Condition History of Current Condition Onset Date 08/02/19 Current Complaints R quad History of Current Condition Pt was fueling up his car on and tripped when stepping over the gas hose and tripped. He tore his quad and had surgery the next day. He was in a knee immobilizer until yesterday. Pt saw MD last week who prescribed PT and told him to take off immobilizer yesterday. He was able to bend to about 90 at that appointment. Pt said he walked his dog today about 4 blocks without it prior to that he was walking a mile with his dog with immobilizer. 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 swimmer, likes to [employer], rides a motorcycle, and goes for walks daily with dog (1.5 miles) Treatment Goals Patient/Caregiver Goals Improve his ROM to close to other leg, be able to hike steep inclines, be able to go down steps, be able to walk on a boat and pull up sails Personal Factors Other Personal Factors That May Effect hx of LBP, R ankle fracture Therapy/Recovery PT-OP-C Subjective Start: 09/12/19 10:24 Freq: Status: Active Protocol: Document 09/24/19 11:23 [facility] (Rec: 09/24/19 12:20 [facility] [id number]) OP-PT Subjective Patient Comments Patient Comments Pt reports he walked around [facility] this weekend and did some of the trails. ONly mild stiffness after. Patient Reported Progress Improving PT-OP-D Balance Start: 09/12/19 10:24 Freq: Status: Active Protocol: Document 09/12/19 16:52 [facility] (Rec: 09/12/19 18:50 [facility] [id number]) Balance Tests Single Limb Standing Single Limb- Right 30 sec with inc pertubations, lat lean R Single Limb- Left 30 sec PT-OP-F Manual Assessment Start: 09/12/19 10:24 Freq: Status: Active Protocol: Document 09/12/19 16:52 [facility] (Rec: 09/12/19 18:50 [facility] [id number]) Manual Assessments Soft Tissue Assessment Soft Tissue Mobility Assessment scar tissue tightness present on ant knee scar Joint Mobility Assessment Joint Mobility Assessment dec patellar mobility R PT-OP-G Mobility & Gait Start: 09/12/19 10:24 Freq: Status: Active Protocol: Document 09/12/19 16:52 [facility] (Rec: 09/12/19 18:50 [facility] [id number]) OP Gait Assessment Comments Gait Comments Pt amb with dec knee flex of R leg and dec push off with lat lean to L with LLE WB in order to clear RLE PT-OP-J Posture/Palpation/Skin Start: 09/12/19 10:24 Freq: Status: Active Protocol: Document 09/12/19 16:52 [facility] (Rec: 09/12/19 18:50 [facility] [id number]) Posture Evaluation [facility] Postural Classification System Lumbar Protective Mechanism Left AP 0 Lumbar Protective Mechanism Right AP 0 Lumbar Protective Mechanism Left PA 2 Lumbar Protective Mechanism Right PA 2 PT-OP-K Range of Motion Start: 09/12/19 10:24 Freq: Status: Active Protocol: Document 09/12/19 16:52 [facility] (Rec: 09/12/19 18:50 [facility] [id number]) Knee Goniometric Range of Motion Knee Left Flexion Active (degrees) 132 Extension Active (degrees) 0 Right Flexion Active (degrees) 83 Extension Active (degrees) 9 PT-OP-M Strength Start: 09/12/19 10:24 Freq: Status: Active Protocol: Document 09/12/19 16:52 [facility] (Rec: 09/12/19 18:50 [facility] [id number]) Hip Strength Hip Manual Muscle Testing Right Flexion (L2) 3+ Fair+ Extension (S1) 3+ Fair+ Abduction 3+ Fair+ Adduction 3+ Fair+ External Rotation 3+ Fair+ Internal Rotation 4- Good- Left Flexion (L2) 4+ Good+ Extension (S1) 4- Good- Abduction 4+ Good+ Adduction 4 Good External Rotation 4+ Good+ Internal Rotation 4+ Good+ Knee Strength Knee Manual Muscle Testing Right Flexion (S2) 3+ Fair+ Extension (L3) 3+ Fair+ Left Flexion (S2) 4+ Good+ Extension (L3) 5 Normal Ankle/Foot Strength Ankle and Foot Manual Muscle Testing Right Dorsiflexion (L4) 5 Normal Plantarflexion (S1) 5 Normal Left Dorsiflexion (L4) 5 Normal Plantarflexion (S1) 5 Normal PT-OP-Q Treatments Start: 09/12/19 10:24 Freq: Status: Active Protocol: Document 09/24/19 11:23 [facility] (Rec: 09/24/19 12:20 [facility] [id number]) Cardio Equipment Recumbent Stepper (Sci-Fit) Duration (Minutes) 7 Resistance 4 Seat Position 10-7 Other focus on ROM Gym Equipment Shuttle Balance red clips Details fwd & side: WBOS & NBOS & tips in WBOS, staggered stance B Reps/Duration also wt shifts fwd & side Manual Therapy Treatment Soft Tissue Mobilization scar Mobilization Type Rolling Intensity/Depth Moderate Body Position Supine Comments rolling & plunger & MFR w/ dycem w/ APs Neuro Re-Education Treatment Balance Activities bosu Comments 1. step ups onto bosu with 3 sec balance on top x10 B 2. squats x12 PT-OP-T Assessment and Plan Start: 09/12/19 10:24 Freq: Status: Active Protocol: Document 09/24/19 11:23 [facility] (Rec: 09/24/19 12:20 [facility] [id number]) Physical Therapy Assessment Goals walking Short Term Goal (STG) Pt will be able to walk 2 miles on even terrain without inc pain greater than 2/10. STG Duration achieved Javascript Engineer Goal (LTG) Pt will be able to hike 2 miles on uneven and hilly terrain without inc pain. LTG Duration 11/12/19 ROM Short Term Goal (STG) Pt will have full ext to 0 deg in order to improve gait mechanics. STG Duration 10/01/19 Javascript Engineer Goal (LTG) Pt will have flex to 130 deg and be able to get in/out of a kayak. LTG Duration 11/12/19 strength Short Term Goal (STG) Pt will be indep with HEP STG Duration 10/13/19 Javascript Engineer Goal (LTG) Pt will have 5/5 B LE strength and LPM to show improved stability and ability to return to typical activities. LTG Duration 11/12/19 stairs Impairment step to down and requires rails up and down stairs Short Term Goal (STG) Pt will be ascend stairs reciprocally without rails STG Duration 10/04/19 Javascript Engineer Goal (LTG) pt will be able to descend stairs reciprocally without raisl LTG Duration 11/12/19 Assessment Summary Assessment Pt had 7-111 deg and improved to 4-115 after manual treatment. He is improving with ability to balance and control his body on balance board and was able to do step ups to bosu without rail. Physical Therapy Plan Next Visit Focus/Plan Next Note Type Treatment Note Next Visit Plan work on patellar mobility, scar tissue mobility, tibfib & tib fem mobility, quad strength, work on push off for gait
--- NOTE | 2019-09-26 11:19 | PT.OTN ---
Current Diagnoses Difficulty in walking, not elsewhere classified (09/26/19) Weakness (09/26/19) Strain of right quadriceps muscle, fascia and tendon, subsequent encounter (09/26/19) Physical Therapy Treatment Note PT-OP-A Visit Information Start: 09/12/19 10:24 Freq: Status: Active Protocol: Document 09/26/19 10:38 [facility] (Rec: 09/26/19 11:19 [facility] [id number]) Out-Patient Physical Therapy Visit Information Visit Information Visit Type Treatment Note Visit Start Time 10:36 Visit Stop Time 11:14 Total Visit Minutes 38 Visit Number 5 Number of SIGNALS ANALYST Visits 0 PT-OP-B Current Condition Start: 09/12/19 10:24 Freq: Status: Active Protocol: Document 09/12/19 16:52 [facility] (Rec: 09/12/19 18:50 [facility] [id number]) Current Condition History of Current Condition Onset Date 08/02/19 Current Complaints R quad History of Current Condition Pt was fueling up his car on and tripped when stepping over the gas hose and tripped. He tore his quad and had surgery the next day. He was in a knee immobilizer until yesterday. Pt saw MD last week who prescribed PT and told him to take off immobilizer yesterday. He was able to bend to about 90 at that appointment. Pt said he walked his dog today about 4 blocks without it prior to that he was walking a mile with his dog with immobilizer. 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 (Rec: 09/26/19 11:19 [facility] [id number]) OP-PT Subjective Patient Comments Patient Comments Pt reports he has done some small walks since last time. COmpliance with HEP PT-OP-D Balance Start: 09/12/19 10:24 Freq: Status: Active Protocol: Document 09/12/19 16:52 [facility] (Rec: 09/12/19 18:50 [facility] [id number]) Balance Tests Single Limb Standing Single Limb- Right 30 sec with inc pertubations, lat lean R Single Limb- Left 30 sec PT-OP-F Manual Assessment Start: 09/12/19 10:24 Freq: Status: Active Protocol: Document 09/12/19 16:52 [facility] (Rec: 09/12/19 18:50 [facility] [id number]) Manual Assessments Soft Tissue Assessment Soft Tissue Mobility Assessment scar tissue tightness present on ant knee scar Joint Mobility Assessment Joint Mobility Assessment dec patellar mobility R PT-OP-G Mobility & Gait Start: 09/12/19 10:24 Freq: Status: Active Protocol: Document 09/12/19 16:52 [facility] (Rec: 09/12/19 18:50 [facility] [id number]) OP Gait Assessment Comments Gait Comments Pt amb with dec knee flex of R leg and dec push off with lat lean to L with LLE WB in order to clear RLE PT-OP-J Posture/Palpation/Skin Start: 09/12/19 10:24 Freq: Status: Active Protocol: Document 09/12/19 16:52 [facility] (Rec: 09/12/19 18:50 [facility] [id number]) Posture Evaluation [facility] Postural Classification System Lumbar Protective Mechanism Left AP 0 Lumbar Protective Mechanism Right AP 0 Lumbar Protective Mechanism Left PA 2 Lumbar Protective Mechanism Right PA 2 PT-OP-K Range of Motion Start: 09/12/19 10:24 Freq: Status: Active Protocol: Document 09/12/19 16:52 [facility] (Rec: 09/12/19 18:50 [facility] [id number]) Knee Goniometric Range of Motion Knee Left Flexion Active (degrees) 132 Extension Active (degrees) 0 Right Flexion Active (degrees) 83 Extension Active (degrees) 9 PT-OP-M Strength Start: 09/12/19 10:24 Freq: Status: Active Protocol: Document 09/12/19 16:52 [facility] (Rec: 09/12/19 18:50 [facility] [id number]) Hip Strength Hip Manual Muscle Testing Right Flexion (L2) 3+ Fair+ Extension (S1) 3+ Fair+ Abduction 3+ Fair+ Adduction 3+ Fair+ External Rotation 3+ Fair+ Internal Rotation 4- Good- Left Flexion (L2) 4+ Good+ Extension (S1) 4- Good- Abduction 4+ Good+ Adduction 4 Good External Rotation 4+ Good+ Internal Rotation 4+ Good+ Knee Strength Knee Manual Muscle Testing Right Flexion (S2) 3+ Fair+ Extension (L3) 3+ Fair+ Left Flexion (S2) 4+ Good+ Extension (L3) 5 Normal Ankle/Foot Strength Ankle and Foot Manual Muscle Testing Right Dorsiflexion (L4) 5 Normal Plantarflexion (S1) 5 Normal Left Dorsiflexion (L4) 5 Normal Plantarflexion (S1) 5 Normal PT-OP-Q Treatments Start: 09/12/19 10:24 Freq: Status: Active Protocol: Document 09/26/19 10:38 [facility] (Rec: 09/26/19 11:19 [facility] [id number]) Cardio Equipment Recumbent Stepper (Sci-Fit) Duration (Minutes) 7 Resistance 4 Seat Position 10-7 Other focus on ROM Therapeutic Exercises Standing Exercises step down Standing Exercise Name 4in step then reverse step up Side right Equipment Used 10 TKE Side right Equipment Used L3 Reps/Minutes 2x10 step up Standing Exercise Name 8 in step and reverse step down Side right Reps/Minutes 10 Manual Therapy Treatment Soft Tissue Mobilization scar Mobilization Type Rolling Intensity/Depth Moderate Body Position Supine Comments rolling & plunger & MFR w/ dycem w/ APs & ER Joint Mobilizations tibfem Joint R Direction PA FM PF Direction sup, med, inf Neuro Re-Education Treatment Balance Activities bosu Comments 1. step ups onto bosu with 3 sec balance on top x10 B PT-OP-T Assessment and Plan Start: 09/12/19 10:24 Freq: Status: Active Protocol: Document 09/26/19 10:38 [facility] (Rec: 09/26/19 11:19 [facility] [id number]) Physical Therapy Assessment Goals walking Short Term Goal (STG) Pt will be able to walk 2 miles on even terrain without inc pain greater than 2/10. STG Duration achieved Prison Goal (LTG) Pt will be able to hike 2 miles on uneven and hilly terrain without inc pain. LTG Duration 11/12/19 ROM Short Term Goal (STG) Pt will have full ext to 0 deg in order to improve gait mechanics. STG Duration 10/01/19 [employer]spring Strip Gauger Goal (LTG) Pt will have flex to 130 deg and be able to get in/out of a kayak. LTG Duration 11/12/19 strength Short Term Goal (STG) Pt will be indep with HEP STG Duration 10/13/19 [employer]spring Strip Gauger Goal (LTG) Pt will have 5/5 B LE strength and LPM to show improved stability and ability to return to typical activities. LTG Duration 11/12/19 stairs Impairment step to down and requires rails up and down stairs Short Term Goal (STG) Pt will be ascend stairs reciprocally without rails STG Duration 10/04/19 Mainspring Strip Gauger Goal (LTG) pt will be able to descend stairs reciprocally without raisl LTG Duration 11/12/19 Assessment Summary Assessment Pt started with 6-111 deg and improved to 3-118 after manual treatment today. Improved control on step and was able to do slowly when cued. He is improving with ext but still is weak with quad at end range and has ant knee tightness that limits him. Physical Therapy Plan Frequency and Duration Frequency of Treatment 1-2x/week Duration of Treatment 2 months Plan of Care Start Date 09/12/19 Plan of Care End Date 11/12/19 Next Visit Focus/Plan Next Note Type Treatment Note Next Visit Plan work on patellar mobility, scar tissue mobility, tibfib & tib fem mobility, quad strength, work on push off for gait
--- NOTE | 2019-10-01 11:17 | PT.OTN ---
Current Diagnoses Difficulty in walking, not elsewhere classified (10/01/19) Weakness (10/01/19) Strain of right quadriceps muscle, fascia and tendon, subsequent encounter (10/01/19) Physical Therapy Treatment Note PT-OP-A Visit Information Start: 09/12/19 10:24 Freq: Status: Active Protocol: Document 10/01/19 10:34 [facility] (Rec: 10/01/19 11:17 [facility] [id number]) Out-Patient Physical Therapy Visit Information Visit Information Visit Type Treatment Note Visit Start Time 10:32 Visit Stop Time 11:12 Total Visit Minutes 40 Visit Number 6 Number of PASTRY DECORATOR Visits 0 PT-OP-B Current Condition Start: 09/12/19 10:24 Freq: Status: Active Protocol: Document 09/12/19 16:52 [facility] (Rec: 09/12/19 18:50 [facility] [id number]) Current Condition History of Current Condition Onset Date 08/02/19 Current Complaints R quad History of Current Condition Pt was fueling up his car on and tripped when stepping over the gas hose and tripped. He tore his quad and had surgery the next day. He was in a knee immobilizer until yesterday. Pt saw MD last week who prescribed PT and told him to take off immobilizer yesterday. He was able to bend to about 90 at that appointment. Pt said he walked his dog today about 4 blocks without it prior to that he was walking a mile with his dog with immobilizer. 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 swimmer, likes to [employer], rides a motorcycle, and goes for walks daily with dog (1.5 miles) Treatment Goals Patient/Caregiver Goals Improve his ROM to close to other leg, be able to hike steep inclines, be able to go down steps, be able to walk on a boat and pull up sails Personal Factors Other Personal Factors That May Effect hx of LBP, R ankle fracture Therapy/Recovery PT-OP-C Subjective Start: 09/12/19 10:24 Freq: Status: Active Protocol: Document 10/01/19 10:34 [facility] (Rec: 10/01/19 11:17 [facility] [id number]) OP-PT Subjective Patient Comments Patient Comments Pt reports he can now go down stairs reciprocally but cannot contorll the down as much with R knee. PT-OP-D Balance Start: 09/12/19 10:24 Freq: Status: Active Protocol: Document 09/12/19 16:52 [facility] (Rec: 09/12/19 18:50 [facility] [id number]) Balance Tests Single Limb Standing Single Limb- Right 30 sec with inc pertubations, lat lean R Single Limb- Left 30 sec PT-OP-F Manual Assessment Start: 09/12/19 10:24 Freq: Status: Active Protocol: Document 09/12/19 16:52 [facility] (Rec: 09/12/19 18:50 [facility] [id number]) Manual Assessments Soft Tissue Assessment Soft Tissue Mobility Assessment scar tissue tightness present on ant knee scar Joint Mobility Assessment Joint Mobility Assessment dec patellar mobility R PT-OP-G Mobility & Gait Start: 09/12/19 10:24 Freq: Status: Active Protocol: Document 09/12/19 16:52 [facility] (Rec: 09/12/19 18:50 [facility] [id number]) OP Gait Assessment Comments Gait Comments Pt amb with dec knee flex of R leg and dec push off with lat lean to L with LLE WB in order to clear RLE PT-OP-J Posture/Palpation/Skin Start: 09/12/19 10:24 Freq: Status: Active Protocol: Document 09/12/19 16:52 [facility] (Rec: 09/12/19 18:50 [facility] [id number]) Posture Evaluation [facility] Postural Classification System Lumbar Protective Mechanism Left AP 0 Lumbar Protective Mechanism Right AP 0 Lumbar Protective Mechanism Left PA 2 Lumbar Protective Mechanism Right PA 2 PT-OP-K Range of Motion Start: 09/12/19 10:24 Freq: Status: Active Protocol: Document 09/12/19 16:52 [facility] (Rec: 09/12/19 18:50 [facility] [id number]) Knee Goniometric Range of Motion Knee Left Flexion Active (degrees) 132 Extension Active (degrees) 0 Right Flexion Active (degrees) 83 Extension Active (degrees) 9 PT-OP-M Strength Start: 09/12/19 10:24 Freq: Status: Active Protocol: Document 09/12/19 16:52 [facility] (Rec: 09/12/19 18:50 [facility] [id number]) Hip Strength Hip Manual Muscle Testing Right Flexion (L2) 3+ Fair+ Extension (S1) 3+ Fair+ Abduction 3+ Fair+ Adduction 3+ Fair+ External Rotation 3+ Fair+ Internal Rotation 4- Good- Left Flexion (L2) 4+ Good+ Extension (S1) 4- Good- Abduction 4+ Good+ Adduction 4 Good External Rotation 4+ Good+ Internal Rotation 4+ Good+ Knee Strength Knee Manual Muscle Testing Right Flexion (S2) 3+ Fair+ Extension (L3) 3+ Fair+ Left Flexion (S2) 4+ Good+ Extension (L3) 5 Normal Ankle/Foot Strength Ankle and Foot Manual Muscle Testing Right Dorsiflexion (L4) 5 Normal Plantarflexion (S1) 5 Normal Left Dorsiflexion (L4) 5 Normal Plantarflexion (S1) 5 Normal PT-OP-Q Treatments Start: 09/12/19 10:24 Freq: Status: Active Protocol: Document 10/01/19 10:34 [facility] (Rec: 10/01/19 11:17 [facility] [id number]) Cardio Equipment Elliptical Duration (Minutes) 5 Resistance 1 Gym Equipment Sport Cord red Exercise Details work on push off fwd Reps/Duration 10x Therapeutic Exercises Supine Exercises quad set Supine Exercise Name w/self assist for futher range Reps/Minutes 10x Standing Exercises step down Standing Exercise Name 4in step then reverse step up Side right Equipment Used 10 TKE Side right Equipment Used L3 Reps/Minutes 2x10 step up Standing Exercise Name 8 in step and reverse step down Side right Reps/Minutes 10 PT-OP-T Assessment and Plan Start: 09/12/19 10:24 Freq: Status: Active Protocol: Document 10/01/19 10:34 [facility] (Rec: 10/01/19 11:17 [facility] [id number]) Physical Therapy Assessment Goals walking Short Term Goal (STG) Pt will be able to walk 2 miles on even terrain without inc pain greater than 2/10. STG Duration achieved Prison Goal (LTG) Pt will be able to hike 2 miles on uneven and hilly terrain without inc pain. LTG Duration 11/12/19 ROM Short Term Goal (STG) Pt will have full ext to 0 deg in order to improve gait mechanics. STG Duration 10/01/19 Prison Goal (LTG) Pt will have flex to 130 deg and be able to get in/out of a kayak. LTG Duration 11/12/19 strength Short Term Goal (STG) Pt will be indep with HEP STG Duration 10/13/19 Prison Goal (LTG) Pt will have 5/5 B LE strength and LPM to show improved stability and ability to return to typical activities. LTG Duration 11/12/19 stairs Impairment step to down and requires rails up and down stairs Short Term Goal (STG) Pt will be ascend stairs reciprocally without rails STG Duration achieved Prison Goal (LTG) pt will be able to descend stairs reciprocally without raisl LTG Duration 11/12/19 Assessment Summary Assessment Pt is improving with push off when cued and improved from lacking 5 deg ext to lacking only 1 deg and having full PROM into ext. Flex measured at 113 today. Physical Therapy Plan Frequency and Duration Frequency of Treatment 1-2x/week Duration of Treatment 2 months Plan of Care Start Date 09/12/19 Plan of Care End Date 11/12/19 Next Visit Focus/Plan Next Note Type Treatment Note Next Visit Plan work on patellar mobility, scar tissue mobility, tibfib & tib fem mobility, quad strength, work on push off for gait
--- NOTE | 2019-10-08 11:19 | PT.OTN ---
Current Diagnoses Difficulty in walking, not elsewhere classified (10/08/19) Weakness (10/08/19) Strain of right quadriceps muscle, fascia and tendon, subsequent encounter (10/08/19) Physical Therapy Treatment Note PT-OP-A Visit Information Start: 09/12/19 10:24 Freq: Status: Active Protocol: Document 10/08/19 10:33 [facility] (Rec: 10/08/19 11:17 [facility] [id number]) Out-Patient Physical Therapy Visit Information Visit Information Visit Type Treatment Note Visit Start Time 10:32 Visit Stop Time 11:11 Total Visit Minutes 39 Visit Number 7 Number of SHEAR OPERATOR Visits 0 PT-OP-B Current Condition Start: 09/12/19 10:24 Freq: Status: Active Protocol: Document 09/12/19 16:52 [facility] (Rec: 09/12/19 18:50 [facility] [id number]) Current Condition History of Current Condition Onset Date 08/02/19 Current Complaints R quad History of Current Condition Pt was fueling up his car on and tripped when stepping over the gas hose and tripped. He tore his quad and had surgery the next day. He was in a knee immobilizer until yesterday. Pt saw MD last week who prescribed PT and told him to take off immobilizer yesterday. He was able to bend to about 90 at that appointment. Pt said he walked his dog today about 4 blocks without it prior to that he was walking a mile with his dog with immobilizer. 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 (Rec: 10/08/19 11:17 [facility] [id number]) OP-PT Subjective Patient Comments Patient Comments Pt reports no pain except when stretching. He reports its difficult on knees with sit<> stand without hands. PT-OP-D Balance Start: 09/12/19 10:24 Freq: Status: Active Protocol: Document 09/12/19 16:52 [facility] (Rec: 09/12/19 18:50 [facility] [id number]) Balance Tests Single Limb Standing Single Limb- Right 30 sec with inc pertubations, lat lean R Single Limb- Left 30 sec PT-OP-F Manual Assessment Start: 09/12/19 10:24 Freq: Status: Active Protocol: Document 09/12/19 16:52 [facility] (Rec: 09/12/19 18:50 [facility] [id number]) Manual Assessments Soft Tissue Assessment Soft Tissue Mobility Assessment scar tissue tightness present on ant knee scar Joint Mobility Assessment Joint Mobility Assessment dec patellar mobility R PT-OP-G Mobility & Gait Start: 09/12/19 10:24 Freq: Status: Active Protocol: Document 09/12/19 16:52 [facility] (Rec: 09/12/19 18:50 [facility] [id number]) OP Gait Assessment Comments Gait Comments Pt amb with dec knee flex of R leg and dec push off with lat lean to L with LLE WB in order to clear RLE PT-OP-J Posture/Palpation/Skin Start: 09/12/19 10:24 Freq: Status: Active Protocol: Document 09/12/19 16:52 [facility] (Rec: 09/12/19 18:50 [facility] [id number]) Posture Evaluation [facility] Postural Classification System Lumbar Protective Mechanism Left AP 0 Lumbar Protective Mechanism Right AP 0 Lumbar Protective Mechanism Left PA 2 Lumbar Protective Mechanism Right PA 2 PT-OP-K Range of Motion Start: 09/12/19 10:24 Freq: Status: Active Protocol: Document 09/12/19 16:52 [facility] (Rec: 09/12/19 18:50 [facility] [id number]) Knee Goniometric Range of Motion Knee Left Flexion Active (degrees) 132 Extension Active (degrees) 0 Right Flexion Active (degrees) 83 Extension Active (degrees) 9 PT-OP-M Strength Start: 09/12/19 10:24 Freq: Status: Active Protocol: Document 09/12/19 16:52 [facility] (Rec: 09/12/19 18:50 [facility] [id number]) Hip Strength Hip Manual Muscle Testing Right Flexion (L2) 3+ Fair+ Extension (S1) 3+ Fair+ Abduction 3+ Fair+ Adduction 3+ Fair+ External Rotation 3+ Fair+ Internal Rotation 4- Good- Left Flexion (L2) 4+ Good+ Extension (S1) 4- Good- Abduction 4+ Good+ Adduction 4 Good External Rotation 4+ Good+ Internal Rotation 4+ Good+ Knee Strength Knee Manual Muscle Testing Right Flexion (S2) 3+ Fair+ Extension (L3) 3+ Fair+ Left Flexion (S2) 4+ Good+ Extension (L3) 5 Normal Ankle/Foot Strength Ankle and Foot Manual Muscle Testing Right Dorsiflexion (L4) 5 Normal Plantarflexion (S1) 5 Normal Left Dorsiflexion (L4) 5 Normal Plantarflexion (S1) 5 Normal PT-OP-Q Treatments Start: 09/12/19 10:24 Freq: Status: Active Protocol: Document 10/08/19 10:33 [facility] (Rec: 10/08/19 11:17 [facility] [id number]) Cardio Equipment Elliptical Duration (Minutes) 5 Resistance 2 Manual Therapy Treatment Soft Tissue Mobilization ITB Body Location R Mobilization Type Rolling quad Body Location quad tendon Mobilization Type Strumming Joint Mobilizations tibfem Joint R Direction PA FM PF Direction sup, med, inf Neuro Re-Education Treatment Balance Activities bosu Comments 1. step ups onto bosu with 3 sec balance on top fwd x10 B 2. side step ups B x10 3. squat PT-OP-T Assessment and Plan Start: 09/12/19 10:24 Freq: Status: Active Protocol: Document 10/08/19 10:33 [facility] (Rec: 10/08/19 11:17 [facility] [id number]) Physical Therapy Assessment Goals walking Short Term Goal (STG) Pt will be able to walk 2 miles on even terrain without inc pain greater than 2/10. STG Duration achieved Supervisor Shaving And Splitting Goal (LTG) Pt will be able to hike 2 miles on uneven and hilly terrain without inc pain. LTG Duration 11/12/19 ROM Short Term Goal (STG) Pt will have full ext to 0 deg in order to improve gait mechanics. STG Duration 10/01/19 Supervisor Shaving And Splitting Goal (LTG) Pt will have flex to 130 deg and be able to get in/out of a kayak. LTG Duration 11/12/19 strength Short Term Goal (STG) Pt will be indep with HEP STG Duration 10/13/19 Supervisor Shaving And Splitting Goal (LTG) Pt will have 5/5 B LE strength and LPM to show improved stability and ability to return to typical activities. LTG Duration 11/12/19 stairs Impairment step to down and requires rails up and down stairs Short Term Goal (STG) Pt will be ascend stairs reciprocally without rails STG Duration achieved Supervisor Shaving And Splitting Goal (LTG) pt will be able to descend stairs reciprocally without raisl LTG Duration 11/12/19 Assessment Summary Assessment Pt started with 2-121 deg and improved to 0-124 after manual treatment. He is doing better with step up motion and balance on uneven surfaces. Physical Therapy Plan Frequency and Duration Frequency of Treatment 1-2x/week Duration of Treatment 2 months Plan of Care Start Date 09/12/19 Plan of Care End Date 11/12/19 Next Visit Focus/Plan Next Note Type Treatment Note Next Visit Plan work on patellar mobility, scar tissue mobility, tibfib & tib fem mobility, quad strength, work on push off for gait
--- NOTE | 2019-10-15 12:05 | PT.OTN ---
Current Diagnoses Difficulty in walking, not elsewhere classified (10/15/19) Weakness (10/15/19) Strain of right quadriceps muscle, fascia and tendon, subsequent encounter (10/15/19) Physical Therapy Treatment Note PT-OP-A Visit Information Start: 09/12/19 10:24 Freq: Status: Active Protocol: Document 10/15/19 11:19 [facility] (Rec: 10/15/19 12:05 [facility] [id number]) Out-Patient Physical Therapy Visit Information Visit Information Visit Type Treatment Note Visit Start Time 11:17 Visit Stop Time 11:58 Total Visit Minutes 41 Visit Number 8 Number of APRON TRIMMER Visits 0 PT-OP-B Current Condition Start: 09/12/19 10:24 Freq: Status: Active Protocol: Document 09/12/19 16:52 [facility] (Rec: 09/12/19 18:50 [facility] [id number]) Current Condition History of Current Condition Onset Date 08/02/19 Current Complaints R quad History of Current Condition Pt was fueling up his car on and tripped when stepping over the gas hose and tripped. He tore his quad and had surgery the next day. He was in a knee immobilizer until yesterday. Pt saw MD last week who prescribed PT and told him to take off immobilizer yesterday. He was able to bend to about 90 at that appointment. Pt said he walked his dog today about 4 blocks without it prior to that he was walking a mile with his dog with immobilizer. 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 swimmer, likes to [employer], rides a motorcycle, and goes for walks daily with dog (1.5 miles) Treatment Goals Patient/Caregiver Goals Improve his ROM to close to other leg, be able to hike steep inclines, be able to go down steps, be able to walk on a boat and pull up sails Personal Factors Other Personal Factors That May Effect hx of LBP, R ankle fracture Therapy/Recovery PT-OP-C Subjective Start: 09/12/19 10:24 Freq: Status: Active Protocol: Document 10/15/19 11:19 [facility] (Rec: 10/15/19 12:05 [facility] [id number]) OP-PT Subjective Patient Comments Patient Comments Pt erports he has been diong hilly walks and going downhill is a good work out for him. Patient Questionnaires Lower Extremity Functional Scale LEFS Score 61/80 PT-OP-D Balance Start: 09/12/19 10:24 Freq: Status: Active Protocol: Document 09/12/19 16:52 [facility] (Rec: 09/12/19 18:50 [facility] [id number]) Balance Tests Single Limb Standing Single Limb- Right 30 sec with inc pertubations, lat lean R Single Limb- Left 30 sec PT-OP-F Manual Assessment Start: 09/12/19 10:24 Freq: Status: Active Protocol: Document 09/12/19 16:52 [facility] (Rec: 09/12/19 18:50 [facility] [id number]) Manual Assessments Soft Tissue Assessment Soft Tissue Mobility Assessment scar tissue tightness present on ant knee scar Joint Mobility Assessment Joint Mobility Assessment dec patellar mobility R PT-OP-G Mobility & Gait Start: 09/12/19 10:24 Freq: Status: Active Protocol: Document 09/12/19 16:52 [facility] (Rec: 09/12/19 18:50 [facility] [id number]) OP Gait Assessment Comments Gait Comments Pt amb with dec knee flex of R leg and dec push off with lat lean to L with LLE WB in order to clear RLE PT-OP-J Posture/Palpation/Skin Start: 09/12/19 10:24 Freq: Status: Active Protocol: Document 09/12/19 16:52 [facility] (Rec: 09/12/19 18:50 [facility] [id number]) Posture Evaluation [facility] Postural Classification System Lumbar Protective Mechanism Left AP 0 Lumbar Protective Mechanism Right AP 0 Lumbar Protective Mechanism Left PA 2 Lumbar Protective Mechanism Right PA 2 PT-OP-K Range of Motion Start: 09/12/19 10:24 Freq: Status: Active Protocol: Document 09/12/19 16:52 [facility] (Rec: 09/12/19 18:50 [facility] [id number]) Knee Goniometric Range of Motion Knee Left Flexion Active (degrees) 132 Extension Active (degrees) 0 Right Flexion Active (degrees) 83 Extension Active (degrees) 9 PT-OP-M Strength Start: 09/12/19 10:24 Freq: Status: Active Protocol: Document 09/12/19 16:52 [facility] (Rec: 09/12/19 18:50 [facility] [id number]) Hip Strength Hip Manual Muscle Testing Right Flexion (L2) 3+ Fair+ Extension (S1) 3+ Fair+ Abduction 3+ Fair+ Adduction 3+ Fair+ External Rotation 3+ Fair+ Internal Rotation 4- Good- Left Flexion (L2) 4+ Good+ Extension (S1) 4- Good- Abduction 4+ Good+ Adduction 4 Good External Rotation 4+ Good+ Internal Rotation 4+ Good+ Knee Strength Knee Manual Muscle Testing Right Flexion (S2) 3+ Fair+ Extension (L3) 3+ Fair+ Left Flexion (S2) 4+ Good+ Extension (L3) 5 Normal Ankle/Foot Strength Ankle and Foot Manual Muscle Testing Right Dorsiflexion (L4) 5 Normal Plantarflexion (S1) 5 Normal Left Dorsiflexion (L4) 5 Normal Plantarflexion (S1) 5 Normal PT-OP-Q Treatments Start: 09/12/19 10:24 Freq: Status: Active Protocol: Document 10/15/19 11:19 [facility] (Rec: 10/15/19 12:05 [facility] [id number]) Cardio Equipment Elliptical Duration (Minutes) 5 Resistance 2 Therapeutic Exercises Prone Exercises TKE Side right Reps/Minutes [id number] Standing Exercises lunge Side bilateral Reps/Minutes 8 step down Standing Exercise Name 6 in w/work on control Side right Reps/Minutes 10 Comments backwards set up Manual Therapy Treatment Soft Tissue Mobilization quad Mobilization Type Strumming Comments w/ quad activiation in seated and supine Neuro Re-Education Treatment Movement Re-Education Movement Re-education Activities manualt raction facilition fro sit to stand for glute activitation B to improve up from even low surfaces PT-OP-T Assessment and Plan Start: 09/12/19 10:24 Freq: Status: Active Protocol: Document 10/15/19 11:19 [facility] (Rec: 10/15/19 12:05 [facility] [id number]) Physical Therapy Assessment Goals walking Short Term Goal (STG) Pt will be able to walk 2 miles on even terrain without inc pain greater than 2/10. STG Duration achieved Senior Net Architect Goal (LTG) Pt will be able to hike 2 miles on uneven and hilly terrain without inc pain. LTG Duration achieved ROM Short Term Goal (STG) Pt will have full ext to 0 deg in order to improve gait mechanics. STG Duration 10/01/19 Half-Way Goal (LTG) Pt will have flex to 130 deg and be able to get in/out of a kayak. LTG Duration 11/12/19 strength Short Term Goal (STG) Pt will be indep with HEP STG Duration 10/13/19 Senior Net Architect Goal (LTG) Pt will have 5/5 B LE strength and LPM to show improved stability and ability to return to typical activities. LTG Duration 11/12/19 stairs Impairment step to down and requires rails up and down stairs Short Term Goal (STG) Pt will be ascend stairs reciprocally without rails STG Duration achieved Senior Net Architect Goal (LTG) pt will be able to descend stairs reciprocally without raisl LTG Duration achieved Assessment Summary Assessment Pt had good range today 2-128 degrees before manual. Used faciilation strategies to get imrpoved sit to stand motion. Imrpoved VMO after soft tissue work and facilition. Physical Therapy Plan Frequency and Duration Frequency of Treatment 1-2x/week Duration of Treatment 2 months Plan of Care Start Date 09/12/19 Plan of Care End Date 11/12/19 Next Visit Focus/Plan Next Note Type Treatment Note Next Visit Plan work on end range quad faliciliation, review lunges & squat mechanics
--- NOTE | 2019-10-22 11:20 | PT.OTN ---
Current Diagnoses Difficulty in walking, not elsewhere classified (10/22/19) Weakness (10/22/19) Strain of right quadriceps muscle, fascia and tendon, subsequent encounter (10/22/19) Physical Therapy Treatment Note PT-OP-A Visit Information Start: 09/12/19 10:24 Freq: Status: Active Protocol: Document 10/22/19 10:40 [facility] (Rec: 10/22/19 11:19 [facility] [id number]) Out-Patient Physical Therapy Visit Information Visit Information Visit Type Progress Note Visit Start Time 10:38 Visit Stop Time 11:16 Total Visit Minutes 38 Visit Number 9 Number of SHEET METAL FOREMAN Visits 0 PT-OP-B Current Condition Start: 09/12/19 10:24 Freq: Status: Active Protocol: Document 09/12/19 16:52 [facility] (Rec: 09/12/19 18:50 [facility] [id number]) Current Condition History of Current Condition Onset Date 08/02/19 Current Complaints R quad History of Current Condition Pt was fueling up his car on and tripped when stepping over the gas hose and tripped. He tore his quad and had surgery the next day. He was in a knee immobilizer until yesterday. Pt saw MD last week who prescribed PT and told him to take off immobilizer yesterday. He was able to bend to about 90 at that appointment. Pt said he walked his dog today about 4 blocks without it prior to that he was walking a mile with his dog with immobilizer. 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 (Rec: 10/22/19 11:19 [facility] [id number]) OP-PT Subjective Patient Comments Patient Comments Pt feels like he doesnt have a lot of limits Patient Reported Progress Improving PT-OP-D Balance Start: 09/12/19 10:24 Freq: Status: Active Protocol: Document 09/12/19 16:52 [facility] (Rec: 09/12/19 18:50 [facility] [id number]) Balance Tests Single Limb Standing Single Limb- Right 30 sec with inc pertubations, lat lean R Single Limb- Left 30 sec PT-OP-F Manual Assessment Start: 09/12/19 10:24 Freq: Status: Active Protocol: Document 09/12/19 16:52 [facility] (Rec: 09/12/19 18:50 [facility] [id number]) Manual Assessments Soft Tissue Assessment Soft Tissue Mobility Assessment scar tissue tightness present on ant knee scar Joint Mobility Assessment Joint Mobility Assessment dec patellar mobility R PT-OP-G Mobility & Gait Start: 09/12/19 10:24 Freq: Status: Active Protocol: Document 09/12/19 16:52 [facility] (Rec: 09/12/19 18:50 [facility] [id number]) OP Gait Assessment Comments Gait Comments Pt amb with dec knee flex of R leg and dec push off with lat lean to L with LLE WB in order to clear RLE PT-OP-J Posture/Palpation/Skin Start: 09/12/19 10:24 Freq: Status: Active Protocol: Document 09/12/19 16:52 [facility] (Rec: 09/12/19 18:50 [facility] [id number]) Posture Evaluation [facility] Postural Classification System Lumbar Protective Mechanism Left AP 0 Lumbar Protective Mechanism Right AP 0 Lumbar Protective Mechanism Left PA 2 Lumbar Protective Mechanism Right PA 2 PT-OP-K Range of Motion Start: 09/12/19 10:24 Freq: Status: Active Protocol: Document 10/22/19 10:40 [facility] (Rec: 10/22/19 11:19 [facility] [id number]) Knee Goniometric Range of Motion Knee Right Flexion Active (degrees) 128 Extension Active (degrees) 3 PT-OP-M Strength Start: 09/12/19 10:24 Freq: Status: Active Protocol: Document 10/22/19 10:40 [facility] (Rec: 10/22/19 11:19 [facility] [id number]) Hip Strength Hip Manual Muscle Testing Right Flexion (L2) 5 Normal Extension (S1) 4- Good- Abduction 4+ Good+ Adduction 4- Good- External Rotation 4+ Good+ Internal Rotation 5 Normal Left Flexion (L2) 5 Normal Extension (S1) 4- Good- Abduction 4+ Good+ Adduction 5 Normal External Rotation 5 Normal Internal Rotation 4+ Good+ Knee Strength Knee Manual Muscle Testing Right Flexion (S2) 4 Good Extension (L3) 4+ Good+ Left Flexion (S2) 5 Normal Extension (L3) 5 Normal Ankle/Foot Strength Ankle and Foot Manual Muscle Testing Right Dorsiflexion (L4) 5 Normal Plantarflexion (S1) 5 Normal Left Dorsiflexion (L4) 5 Normal Plantarflexion (S1) 5 Normal PT-OP-Q Treatments Start: 09/12/19 10:24 Freq: Status: Active Protocol: Document 10/22/19 10:40 [facility] (Rec: 10/22/19 11:19 [facility] [id number]) Cardio Equipment Elliptical Duration (Minutes) 5 Resistance 3 Therapeutic Exercises Prone Exercises TKE Side right Reps/Minutes 10 sec x5, 5 sec x5 w/hip ext after 5 sec hold Standing Exercises lunge Side bilateral Reps/Minutes 10 squat Standing Exercise Name over chair Side bilateral Reps/Minutes 15 Comments focus on knee position Manual Therapy Treatment Soft Tissue Mobilization ITB Body Location R Mobilization Type Rolling scar Mobilization Type Myofascial Release,Rolling Intensity/Depth Moderate Body Position Supine Comments MRF of inf scar area PT-OP-T Assessment and Plan Start: 09/12/19 10:24 Freq: Status: Active Protocol: Document 10/22/19 10:40 [facility] (Rec: 10/22/19 11:19 [facility] [id number]) Physical Therapy Assessment Goals walking Short Term Goal (STG) Pt will be able to walk 2 miles on even terrain without inc pain greater than 2/10. STG Duration achieved Correction Goal (LTG) Pt will be able to hike 2 miles on uneven and hilly terrain without inc pain. LTG Duration achieved ROM Short Term Goal (STG) Pt will have full ext to 0 deg in order to improve gait mechanics. STG Duration 10/01/19 Soda Jerker Goal (LTG) Pt will have flex to 130 deg and be able to get in/out of a kayak. LTG Duration 11/12/19 strength Short Term Goal (STG) Pt will be indep with HEP STG Duration 10/13/19 Soda Jerker Goal (LTG) Pt will have 5/5 B LE strength and LPM to show improved stability and ability to return to typical activities. 7/-excellent progress LTG Duration 11/12/19 stairs Impairment step to down and requires rails up and down stairs Short Term Goal (STG) Pt will be ascend stairs reciprocally without rails STG Duration achieved Correction Goal (LTG) pt will be able to descend stairs reciprocally without raisl LTG Duration achieved Assessment Summary Assessment Pt cont to imrpove with strength, functional ability and exercise performance. Plan to do 1 more session to focus on review of HEP to DC to home program as pt does not note much limitiation Physical Therapy Plan Frequency and Duration Frequency of Treatment 1-2x/week Duration of Treatment 2 months Plan of Care Start Date 09/12/19 Plan of Care End Date 11/12/19 Next Visit Focus/Plan Next Note Type Discharge Summary Next Visit Plan check ROM, review HEP
--- NOTE | 2019-10-29 12:08 | PT.OTN ---
Current Diagnoses Difficulty in walking, not elsewhere classified (10/29/19) Weakness (10/29/19) Strain of right quadriceps muscle, fascia and tendon, subsequent encounter (10/29/19) Physical Therapy Treatment Note PT-OP-A Visit Information Start: 09/12/19 10:24 Freq: Status: Active Protocol: Document 10/29/19 10:32 [facility] (Rec: 10/29/19 11:26 [facility] [id number]) Out-Patient Physical Therapy Visit Information Visit Information Visit Type Discharge Summary Visit Start Time 10:30 Visit Stop Time 11:10 Total Visit Minutes 40 Visit Number 10 Number of KILN TESTER Visits 0 PT-OP-B Current Condition Start: 09/12/19 10:24 Freq: Status: Active Protocol: Document 09/12/19 16:52 [facility] (Rec: 09/12/19 18:50 [facility] [id number]) Current Condition History of Current Condition Onset Date 08/02/19 Current Complaints R quad History of Current Condition Pt was fueling up his car on and tripped when stepping over the gas hose and tripped. He tore his quad and had surgery the next day. He was in a knee immobilizer until yesterday. Pt saw MD last week who prescribed PT and told him to take off immobilizer yesterday. He was able to bend to about 90 at that appointment. Pt said he walked his dog today about 4 blocks without it prior to that he was walking a mile with his dog with immobilizer. 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 swimmer, likes to [employer], rides a motorcycle, and goes for walks daily with dog (1.5 miles) Treatment Goals Patient/Caregiver Goals Improve his ROM to close to other leg, be able to hike steep inclines, be able to go down steps, be able to walk on a boat and pull up sails Personal Factors Other Personal Factors That May Effect hx of LBP, R ankle fracture Therapy/Recovery PT-OP-C Subjective Start: 09/12/19 10:24 Freq: Status: Active Protocol: Document 10/29/19 10:32 [facility] (Rec: 10/29/19 11:26 [facility] [id number]) OP-PT Subjective Patient Comments Patient Comments Pt feels like he is doing very well and about ready for dc. Stiffness is less of a problem . He can trust his knee more going down steps and hills on trails. Patient Reported Progress Improving PT-OP-D Balance Start: 09/12/19 10:24 Freq: Status: Active Protocol: Document 09/12/19 16:52 [facility] (Rec: 09/12/19 18:50 [facility] [id number]) Balance Tests Single Limb Standing Single Limb- Right 30 sec with inc pertubations, lat lean R Single Limb- Left 30 sec PT-OP-F Manual Assessment Start: 09/12/19 10:24 Freq: Status: Active Protocol: Document 09/12/19 16:52 [facility] (Rec: 09/12/19 18:50 [facility] [id number]) Manual Assessments Soft Tissue Assessment Soft Tissue Mobility Assessment scar tissue tightness present on ant knee scar Joint Mobility Assessment Joint Mobility Assessment dec patellar mobility R PT-OP-G Mobility & Gait Start: 09/12/19 10:24 Freq: Status: Active Protocol: Document 09/12/19 16:52 [facility] (Rec: 09/12/19 18:50 [facility] [id number]) OP Gait Assessment Comments Gait Comments Pt amb with dec knee flex of R leg and dec push off with lat lean to L with LLE WB in order to clear RLE PT-OP-J Posture/Palpation/Skin Start: 09/12/19 10:24 Freq: Status: Active Protocol: Document 09/12/19 16:52 [facility] (Rec: 09/12/19 18:50 [facility] [id number]) Posture Evaluation [facility] Postural Classification System Lumbar Protective Mechanism Left AP 0 Lumbar Protective Mechanism Right AP 0 Lumbar Protective Mechanism Left PA 2 Lumbar Protective Mechanism Right PA 2 PT-OP-K Range of Motion Start: 09/12/19 10:24 Freq: Status: Active Protocol: Document 10/22/19 10:40 [facility] (Rec: 10/22/19 11:19 [facility] [id number]) Knee Goniometric Range of Motion Knee Right Flexion Active (degrees) 128 Extension Active (degrees) 3 PT-OP-M Strength Start: 09/12/19 10:24 Freq: Status: Active Protocol: Document 10/22/19 10:40 [facility] (Rec: 10/22/19 11:19 [facility] [id number]) Hip Strength Hip Manual Muscle Testing Right Flexion (L2) 5 Normal Extension (S1) 4- Good- Abduction 4+ Good+ Adduction 4- Good- External Rotation 4+ Good+ Internal Rotation 5 Normal Left Flexion (L2) 5 Normal Extension (S1) 4- Good- Abduction 4+ Good+ Adduction 5 Normal External Rotation 5 Normal Internal Rotation 4+ Good+ Knee Strength Knee Manual Muscle Testing Right Flexion (S2) 4 Good Extension (L3) 4+ Good+ Left Flexion (S2) 5 Normal Extension (L3) 5 Normal Ankle/Foot Strength Ankle and Foot Manual Muscle Testing Right Dorsiflexion (L4) 5 Normal Plantarflexion (S1) 5 Normal Left Dorsiflexion (L4) 5 Normal Plantarflexion (S1) 5 Normal PT-OP-Q Treatments Start: 09/12/19 10:24 Freq: Status: Active Protocol: Document 10/29/19 10:32 [facility] (Rec: 10/29/19 11:26 [facility] [id number]) Cardio Equipment Elliptical Duration (Minutes) 5 Resistance 3 Therapeutic Exercises Supine Exercises quad set Supine Exercise Name seatd w/overpressure Side right Reps/Minutes 10 sec x5 HS stretch Side right Reps/Minutes 45 sec Prone Exercises TKE Side right Reps/Minutes 10 sec x5, 5 sec x5 w/hip ext after 5 sec hold Sitting Exercises knee flex Side right Equipment Used L3 Reps/Minutes 10 Standing Exercises side step Side bilateral Equipment Used 3 Reps/Minutes 6ftx2 ea lunge Side bilateral Reps/Minutes 10 squat Standing Exercise Name over chair Side bilateral Reps/Minutes 15 Comments focus on knee position PT-OP-T Assessment and Plan Start: 09/12/19 10:24 Freq: Status: Active Protocol: Document 10/29/19 10:32 [facility] (Rec: 10/29/19 11:26 [facility] [id number]) Physical Therapy Assessment Goals walking Short Term Goal (STG) Pt will be able to walk 2 miles on even terrain without inc pain greater than 2/10. STG Duration achieved [employer]er Goal (LTG) Pt will be able to hike 2 miles on uneven and hilly terrain without inc pain. LTG Duration achieved ROM Short Term Goal (STG) Pt will have full ext to 0 deg in order to improve gait mechanics. STG Duration able to get passively and activiely after manual otherwise 2 deg [employer] Worker Goal (LTG) Pt will have flex to 130 deg and be able to get in/out of a kayak. LTG Duration achieved w/range has not tried tog et in kayak strength Short Term Goal (STG) Pt will be indep with HEP STG Duration achieved [employer]er Goal (LTG) Pt will have 5/5 B LE strength and LPM to show improved stability and ability to return to typical activities. 7/6-excellent progress LTG Duration improved to cont to work on w/ HEP stairs Impairment step to down and requires rails up and down stairs Short Term Goal (STG) Pt will be ascend stairs reciprocally without rails STG Duration achieved [employer]er Goal (LTG) pt will be able to descend stairs reciprocally without raisl LTG Duration achieved Assessment Summary Assessment Pt has met most goals except for 2 deg ext and full strength at this time. He is progressing his strength with exercises and required very few small cues with exercsies. He is progressing with functional and recreational activities and has not tried to kayak but that is partly d/ t his back. He will cont to do his exercsies in order to build up strength. Physical Therapy Plan Discharge Physical Therapy Discharge Reasons Goals Met
== END 2019-11-01 13:13 ==
LOC: PHYS 10:30
PROVIDERS: PCP Internal Medicine; Referring Provider Orthopaedic Surgery; Visit Provider Orthopaedic Surgery
DX: S76.111D Strain of right quadriceps muscle, fascia and tendon, subsequent encounter (principal); R53.1 Weakness; R26.2 Difficulty in walking, not elsewhere classified
CPT/HCPCS: 97110; 97112; 97116; 97140; 97161

== ENCOUNTER → 2020-08-15 12:55 | Outpatient (CLI) | payer MEDICARE, OTHER, SELFPAY ==
[2020-08-15 15:01] LABS: Aspartate Aminotransferase 28 IU/L (17-59); BUN Creatinine Ratio 21.1 (6-22); Blood Urea Nitrogen 19 mg/dL (9-20); Calcium 9.5 mg/dL (8.4-10.2); Carbon Dioxide 26 mmol/L (22-32); Chloride 103 mmol/L (98-107); Cholesterol 176 mg/dL (140-199); Estimated Glomerular Filt Rate > 60.0 mL/min (>60); Glucose 100 mg/dL (80-110); HDL Cholesterol 48 mg/dL (40-60); HEMOLYSIS < 15 (0-50); LDL Cholesterol Calculated 98 mg/dL (<100); Potassium 4.6 mmol/L (3.4-5.1); Sodium 138 mmol/L (137-145); Triglycerides 150 mg/dL (35-150)
[2020-08-15 15:28] LABS: Prostate Specific Antigen 3.54 ng/mL (0.10-4.00)
[2020-08-16 08:13] LABS: PSA Free % 28.2 % (.); PSA, Total 3.9 ng/mL (0.0-4.0)
== END ==
PROVIDERS: PCP Internal Medicine; Referring Provider Internal Medicine; Visit Provider Internal Medicine
DX: E78.2 Mixed hyperlipidemia (principal); N40.0 Benign prostatic hyperplasia without lower urinary tract symptoms; R97.20 Elevated prostate specific antigen [PSA]
CPT/HCPCS: 36415; 80048; 80061; 84153; 84154; 84450

== ENCOUNTER → 2021-08-05 11:55 | Outpatient (CLI) | payer MEDICARE, OTHER, SELFPAY ==
[2021-08-05 12:44] LABS: Hematocrit 45.1 % (41-53); Mean Corpuscular HGB Conc 35.5 % (30-36); Mean Corpuscular Hemoglobin 31.8 PG (26-34); Mean Corpuscular Volume 89.6 fL (80-100); Platelet Count 161 X10^3/uL (150-400); Red Blood Cell Count 5.04 X10^6/uL (4.5-5.9); White Blood Cell Count 6.5 X10^3/uL (4.5-11.0)
[2021-08-05 13:14] LABS: Alanine Aminotransferase 27 IU/L (<50); Albumin 4.5 g/dL (3.5-5.0); Albumin Globulin Ratio 1.8 (1.0-2.8); Alkaline Phosphatase 71 U/L (38-126); Aspartate Aminotransferase 28 IU/L (17-59); BUN Creatinine Ratio 19.1 (6-22); Bilirubin Total 1.9 mg/dL (0.2-1.3); Blood Urea Nitrogen 18 mg/dL (9-20); Carbon Dioxide 29 mmol/L (22-32); Chloride 104 mmol/L (98-107); Cholesterol 181 mg/dL (140-199); Estimated Glomerular Filt Rate > 60 mL/min (>60); Globulin 2.5 g/dL (1.7-4.1); Glucose 102 mg/dL (80-110); HDL Cholesterol 47 mg/dL (40-60); HEMOLYSIS < 15 (0-50); LDL Cholesterol Calculated 96 mg/dL (<100); Potassium 4.8 mmol/L (3.4-5.1); Sodium 138 mmol/L (137-145); Triglycerides 190 mg/dL (35-150)
[2021-08-05 13:46] LABS: Prostate Specific Antigen 3.94 ng/mL (0.10-4.00)
[2021-08-05 13:47] LABS: TSH w/ Reflex to FT4 1.69 uIU/mL (0.47-4.68)
== END ==
PROVIDERS: PCP Internal Medicine; Referring Provider Internal Medicine; Visit Provider Internal Medicine
DX: E78.2 Mixed hyperlipidemia (principal); N40.1 Benign prostatic hyperplasia with lower urinary tract symptoms; R13.10 Dysphagia, unspecified; N13.8 Other obstructive and reflux uropathy
CPT/HCPCS: 36415; 80053; 80061; 84153; 84443; 85027

== ENCOUNTER → 2022-08-06 15:10 | Outpatient (CLI) | payer MEDICARE, OTHER, SELFPAY ==
[2022-08-06 16:05] LABS: Aspartate Aminotransferase 24 IU/L (17-59); BUN Creatinine Ratio 21.1 (6-22); Blood Urea Nitrogen 19 mg/dL (9-20); Carbon Dioxide 27 mmol/L (22-32); Chloride 103 mmol/L (98-107); Cholesterol 181 mg/dL (140-199); Estimated Glomerular Filt Rate > 60 mL/min (>60); Glucose 98 mg/dL (80-110); HDL Cholesterol 51 mg/dL (40-60); HEMOLYSIS < 15 (0-50); LDL Cholesterol Calculated 90 mg/dL (<100); Potassium 4.3 mmol/L (3.4-5.1); Sodium 136 mmol/L (137-145); Triglycerides 202 mg/dL (35-150)
[2022-08-06 16:33] LABS: Prostate Specific Antigen 3.89 ng/mL (0.10-4.00)
== END ==
PROVIDERS: PCP Internal Medicine; Referring Provider Internal Medicine; Visit Provider Internal Medicine
DX: E78.2 Mixed hyperlipidemia (principal); N40.1 Benign prostatic hyperplasia with lower urinary tract symptoms; N13.8 Other obstructive and reflux uropathy
CPT/HCPCS: 36415; 80048; 80061; 84153; 84450

== ENCOUNTER → 2023-08-10 14:38 | Outpatient (CLI) | payer MEDICARE, OTHER, SELFPAY ==
[2023-08-10 15:50] LABS: Aspartate Aminotransferase 27 IU/L (17-59); Blood Urea Nitrogen 16 mg/dL (9-20); Calcium 9.2 mg/dL (8.4-10.2); Carbon Dioxide 29 mmol/L (22-32); Chloride 102 mmol/L (98-107); Cholesterol 157 mg/dL (140-199); Estimated Glomerular Filt Rate > 60 mL/min (>60); Glucose 88 mg/dL (80-110); HDL Cholesterol 42 mg/dL (40-60); HEMOLYSIS 30 (0-50); LDL Cholesterol Calculated 78 mg/dL (<100); Potassium 4.3 mmol/L (3.4-5.1); Sodium 136 mmol/L (137-145); Triglycerides 187 mg/dL (35-150)
[2023-08-10 16:21] LABS: Prostate Specific Antigen 6.22 ng/mL (0.10-4.00)
== END ==
PROVIDERS: PCP Internal Medicine; Referring Provider Internal Medicine; Visit Provider Internal Medicine
DX: N40.1 Benign prostatic hyperplasia with lower urinary tract symptoms (principal); E78.2 Mixed hyperlipidemia; N13.8 Other obstructive and reflux uropathy
CPT/HCPCS: 36415; 80048; 80061; 84153; 84450

== ENCOUNTER → 2023-08-25 10:27 | Outpatient (CLI) | payer MEDICARE, OTHER, SELFPAY | LOC: LAB 10:28 | PROVIDERS: PCP Internal Medicine; Referring Provider Internal Medicine; Visit Provider Internal Medicine | DX: R97.20 Elevated prostate specific antigen [PSA] (principal) | CPT/HCPCS: 36415; 84153; 84154 ==

== ENCOUNTER → 2024-08-13 14:04 | Outpatient (CLI) | payer MEDICARE, OTHER, SELFPAY ==
[2024-08-13 15:21] LABS: Aspartate Aminotransferase 27 IU/L (17-59); BUN Creatinine Ratio 16.2 (6-22); Blood Urea Nitrogen 16 mg/dL (9-20); Calcium 9.3 mg/dL (8.4-10.2); Carbon Dioxide 27 mmol/L (22-32); Chloride 103 mmol/L (98-107); Cholesterol 196 mg/dL (140-199); Estimated Glomerular Filt Rate > 60 mL/min (>60); Glucose 92 mg/dL (70-99); HDL Cholesterol 47 mg/dL (40-60); HEMOLYSIS < 15 (0-50); LDL Cholesterol Calculated 106 mg/dL (<100); Potassium 4.7 mmol/L (3.4-5.1); Sodium 136 mmol/L (137-145); Triglycerides 214 mg/dL (35-150)
[2024-08-13 15:53] LABS: Prostate Specific Antigen 4.19 ng/mL (0.10-4.00)
== END ==
PROVIDERS: PCP Internal Medicine; Referring Provider Internal Medicine; Visit Provider Internal Medicine
DX: E78.2 Mixed hyperlipidemia (principal); N40.1 Benign prostatic hyperplasia with lower urinary tract symptoms; N13.8 Other obstructive and reflux uropathy
CPT/HCPCS: 36415; 80048; 80061; 84153; 84450

== ENCOUNTER 2024-09-24 11:15 | Day surgery (SDC) | payer MEDICARE, OTHER, SELFPAY ==
[2024-09-24] VITALS (8 sets, daily range): BP systolic 90–165; BP diastolic 56–83; PULSE 50–81; RESP 8–16; TEMP 36.2–36.7; O2SAT 91–98
[2024-09-24] MEDS: LACTATED RINGERS 1,000 ML 84 ML IV (11:30)
--- NOTE | 2024-09-24 12:08 | PM.HP.IH.1 ---
History of Present Illness History of Present Illness Date Patient Seen: 09/24/24 Chief complaint: SDC Narrative: Follow-up colonoscopy last done 10-11 years ago. May have had a small polyp removed. [facility] Medical History Actinic keratosis Ankle fracture BPH w urinary obs/LUTS Dysphagia Hearing loss Injury of right lower extremity (08/01/19) Mixed hyperlipidemia Ocular migraine PSA elevation Surgical History History of surgery Hx of tonsillectomy Social History household members: spouse Smoking Status: Never smoker alcohol intake: current Meds Home Medications and Allergies Home Medications ?Medication ?Instructions ?Recorded ?Confirmed ?Type aspirin 81 mg tablet,delayed 81 mg PO HS ##0 08/09/17 09/24/24 History release atorvastatin 20 mg tablet (Lipitor) 20 mg PO HS #90 tabs 08/13/24 09/24/24 Rx sodium,potassium,mag sulfates 17.5 See Rx Instructions PO .COMPLEX 08/16/24 Rx gram-3.13 gram-1.6 gram oral soln #354 mL (Suprep Bowel Prep Kit) Allergies Allergy/AdvReac Type Severity Reaction Status Date / Time No Known Drug Allergies Allergy Verified 09/24/24 11:38 Exam Vital Signs (past 8 hours): - 09/24/24 11:42 Temperature 97.6 F Pulse Rate 66 Respiratory Rate 16 Blood Pressure 165/83 H Pulse Oximetry 98 Oxygen Delivery Method Room Air Oxygen Delivery Method Room Air Narrative Exam Narrative: Oropharynx free of lesions Chest clear to auscultation percussion Cardiac exam reveals no S3 or murmur Assessment & Plan Assessment & Plan narrative: History of need for follow-up colonoscopy at a greater than 10 year interval. Risks, benefits, alternatives have been explained Time-Based Coding :: [TOTAL MINUTES] spent with patient and on the chart (including review of chart, obtaining history, exam, reviewing outside data, placing orders, documenting exam and treatment plan, and counseling patient) on [DATE]. [employer] Utility Service Worker Document charge(s): No
--- NOTE | 2024-09-24 12:10 | PM.OP.COLON ---
Operative Date/Time/Diagnoses Date of procedure: 09/24/24 Time of procedure: 12:58 Pre-op diagnosis: See indication and findings Post-op diagnosis: same Procedure & Clinicians Same procedure as scheduled: Yes Indications: Colon cancer screening Surgeon: Frank Adame Procedure Notes Procedure in detail: After informed consent was obtained the patient was placed in left lateral decubitus position. The video colonoscope was introduced in easily passed the cecum. Preparation was good. On slow withdrawal mucosa was carefully examined. The scope was removed. The patient tolerated procedure well. Blood loss none Complications none Sedation mac Findings 1. Very large and tortuous and very dilated colon. It took a lot of effort to reach the rim of the cecum at which point I could see down into most of the cecum. No lesions were seen. 2. Very difficult to suction all areas of liquid prep away. Still evaluation was reasonably decent 3. No clear neoplastic lesions I would stump Mr. Che surveillance program here. No further colonoscopy is to be contemplated unless symptoms develop.
== END 2024-09-24 14:00 | disposition home or self-care (01) ==
PROVIDERS: PCP Internal Medicine; Referring Provider Internal Medicine Gastroenterology; Visit Provider Internal Medicine Gastroenterology
PROC: 0DJD8ZZ Inspection of Lower Intestinal Tract, Via Natural or Artificial Opening Endoscopic (ICD-10-PCS; CPT 45378; principal; 2024-09-24 12:30)
DX: Z12.11 Encounter for screening for malignant neoplasm of colon (principal); K59.39 Other megacolon; N40.1 Benign prostatic hyperplasia with lower urinary tract symptoms; N13.9 Obstructive and reflux uropathy, unspecified; E78.2 Mixed hyperlipidemia
CPT/HCPCS: G0121; J2704